=== PATIENT | male | born 1960 | race Caucasian/White ===

== ENCOUNTER 2017-02-12 07:27 | Emergency (ER) | payer MEDICARE, MEDICAID ==
[~2017-02-12] VITALS: Ht 177.8 cm; Wt 90.7 kg
[~2017-02-12 07:27] MED LIST: ALPR1T PO; FLT05NA16 NSEACH; PRD20T PO; SEROQUEL; [UNRECOGNIZED DRUG - OTHER]
[2017-02-12 07:42] LABS: BASOPHILS # (AUTO) 0.1 10^3/uL (0.0-0.1); BASOPHILS % (AUTO) 1 % (0-10); EOSINOPHILS % (AUTO) 0 % (0-10); LYMPHOCYTES # (AUTO) 1.1 X 10^3 (1.0-4.0); LYMPHOCYTES % (AUTO) 8 % (12-44); MEAN CORPUSCULAR HEMOGLOBIN 35 PG (25-34); MEAN CORPUSCULAR HGB CONC 34 G/DL (32-36); MEAN CORPUSCULAR VOLUME 105 FL (80-99); MEAN PLATELET VOLUME 12.6 FL (7.4-10.4); MONOCYTES # (AUTO) 1.1 X 10^3 (0.0-1.0); MONOCYTES % (AUTO) 8 % (0-12); NEUTROPHILS # (AUTO) 12.4 X 10^3 (1.8-7.8); NEUTROPHILS % (AUTO) 84 % (42-75); PLATELET COUNT 183 10^3/uL (130-400); RED BLOOD COUNT 2.41 10^6/uL (4.35-5.85); RED CELL DISTRIBUTION WIDTH 13.7 % (10.0-14.5); WHITE BLOOD COUNT 14.7 10^3/uL (4.3-11.0)
--- NOTE | 2017-02-12 07:43 | ED Abdominal Pain ---
General Stated Complaint: SYNCOPE Source of Information: Patient, EMS Exam Limitations: Intoxication History of Present Illness Time Seen By Provider: 07:38 Initial Comments This 56-year old white male presents with a history drinking a pint or more of vodka daily. Three days ago he vomited blood with subsequent black and tarry stools. This morning he vomited a large amount of bright red blood and having a secondary syncopal episode, self-limited in nature. He takes an aspirin a day. He has no definite cardiovascular history and has untreated hypertension. There is no history of bleeding disorder. There was no associated chest pain, palpatations, or shortness of breath. Allergies and Home Medications Allergies Coded Allergies: Penicillins (Verified Allergy, Unknown, 02/12/17) Home Medications Alprazolam 1 Mg Tablet, 1 TAB PO BID PRN, #5 Ref 0 Prescribed by: ANGUS BRITO on 01/30/131406 Fluticasone Propionate 16 Gm Howard, 2 SPRAYS NSEACH DAILY for 30 Days, Ref 0 Prescribed by: ANGUS BRITO on 01/30/131406 Prednisone 20 Mg Tab, 20 MG PO DAILY for 7 Days Prescribed by: ANGUS BRITO on 01/30/131406 [Inbega] , (Reported) [Seroquel] , (Reported) Review of Systems Constitutional: No chills, dizziness, weakness EENTM: No Blurred Vision, No Double Vision, No Mouth Pain Respiratory: Denies Cough, Denies Shortness of Air Cardiovascular: Denies Edema, Denies Irregular Heart Rate, Lightheadedness, Denies Palpitations, Syncope Gastrointestinal: Denies Abdomen Distended, Abdominal Pain (the patient has mild diffuse abdominal tenderness. No rebound is present. No masses were noted.), Nausea, Vomiting, Other (of bright red blood.) Genitourinary: No Symptoms Reported Musculoskeletal: No back pain Skin: change in color (patient appears pale in the emergency department) Psychiatric/Neurological: No Symptoms Reported Endocrine: No Symptoms Reported Hematologic/Lymphatic: No Symptoms Reported Past Dyppsqc-Qsjuwc-Chyzrs Hx Patient Social History Alcohol Use: Regular Use Recreational Drug Use: No Smoking Status: Current Everyday Smoker Type Used: Cigarettes Surgeries HX Surgeries: No Respiratory Hx Respiratory Disorders: No Cardiovascular Hx Cardiac Disorders: No Neurological Hx Neurological Disorders: No Genitourinary Hx Genitourinary Disorders: No Gastrointestinal Hx Gastrointestinal Disorders: No Musculoskeletal Hx Musculoskeletal Disorders: Yes Musculoskeletal Disorders: Chronic Back Pain Endocrine Hx Endocrine Disorders: No Cancer Hx Cancer: No Psychosocial Hx Psychiatric Problems: Yes Behavioral Health Disorders: Anxiety, Depression Reviewed Nursing Assessment Reviewed/Agree w Nursing PMH: Yes Family Medical History Significant Family History: No Pertinent Family Hx Physical Exam Vital Signs VS - Last 72 Hours, by Label 02/12/17 07:30 Temp 96.9 Pulse 115 Resp 18 B/P (MAP) 178/106 Pulse Ox 99 O2 Delivery Room Air Capillary Refill : General Appearance: mild distress HEENT: No scleral icterus (L), other (the patient appears pale he has old blood to the face that he vomited prior to presentation to the emergency department.) Neck: non-tender, full range of motion, supple Respiratory: lungs clear, normal breath sounds, no respiratory distress Cardiovascular: regular rate, rhythm, no gallop, no murmur Gastrointestinal: normal bowel sounds, non tender, soft Extremities: normal range of motion, non-tender, normal inspection, no pedal edema Back: normal inspection, no CVA tenderness Male: normal genitalia, other (guiac positive stool) Neurologic/Psychiatric: no motor/sensory deficits, normal mood/affect Skin: No jaundice, pallor Progress/Results/Core Measures Results/Orders Lab Results Laboratory Tests Test 02/12/17 07:30 Range/Units White Blood Count 14.7 H 4.3-11.0 10^3/uL Red Blood Count 2.41 L 4.35-5.85 10^6/uL Hemoglobin 8.5 L 13.3-17.7 G/DL Hematocrit 25 L 40-54 % Mean Corpuscular Volume 105 H 80-99 FL Mean Corpuscular Hemoglobin 35 H 25-34 PG Mean Corpuscular Hemoglobin Concent 34 32-36 G/DL Red Cell Distribution Width 13.7 10.0-14.5 % Platelet Count 183 130-400 10^3/uL Mean Platelet Volume 12.6 H 7.4-10.4 FL Neutrophils (%) (Auto) 84 H 42-75 % Lymphocytes (%) (Auto) 8 L 12-44 % Monocytes (%) (Auto) 8 0-12 % Eosinophils (%) (Auto) 0 0-10 % Basophils (%) (Auto) 1 0-10 % Neutrophils # (Auto) 12.4 H 1.8-7.8 X 10^3 Lymphocytes # (Auto) 1.1 1.0-4.0 X 10^3 Monocytes # (Auto) 1.1 H 0.0-1.0 X 10^3 Eosinophils # (Auto) 0.0 0.0-0.3 10^3/uL Basophils # (Auto) 0.1 0.0-0.1 10^3/uL Neutrophils % (Manual) 78 % Lymphocytes % (Manual) 13 % Monocytes % (Manual) 5 % Eosinophils % (Manual) 0 % Basophils % (Manual) 0 % Band Neutrophils 4 % Macrocytosis SLIGHT Prothrombin Time 16.7 H 12.2-14.7 SEC INR Comment 1.4 0.8-1.4 Sodium Level 142 135-145 MMOL/L Potassium Level 4.7 3.6-5.0 MMOL/L Chloride Level 108 H 98-107 MMOL/L Carbon Dioxide Level 21 21-32 MMOL/L Anion Gap 13 5-14 MMOL/L Blood Urea Nitrogen 40 H 7-18 MG/DL Creatinine 1.24 0.60-1.30 MG/DL Estimat Glomerular Filtration Rate > 60 BUN/Creatinine Ratio 32 Glucose Level 311 H 70-105 MG/DL Calcium Level 8.1 L 8.5-10.1 MG/DL Total Bilirubin 2.0 H 0.1-1.0 MG/DL Aspartate Amino Transf (AST/SGOT) 60 H 5-34 U/L Alanine Aminotransferase (ALT/SGPT) 18 0-55 U/L Alkaline Phosphatase 82 40-136 U/L Troponin I < 0.30 <0.30 NG/ML Total Protein 6.1 L 6.4-8.2 G/DL Albumin 3.1 L 3.2-4.5 G/DL Lipase 59 8-78 U/L Serum Alcohol 75 H <10 MG/DL My Orders Orders - JULIETTE BROWN MD Cbc With Automated Diff (02/12/17 07:33) Protime With Inr (02/12/17 07:33) Comprehensive Metabolic Panel (02/12/17 07:33) Alcohol (02/12/17 07:33) Drug Screen Stat (Urine) (02/12/17 07:33) Lipase (02/12/17 07:33) Type And Screen (02/12/17 07:33) Ua Culture If Indicated (02/12/17 07:33) Ns Iv 1000 Ml (Sodium Chloride 0.9%) (02/12/17 07:45) Ondansetron Injection (Zofran Injectio (02/12/17 07:45) Thiamine Injection (Vitamin B-1 Injectio (02/12/17 09:00) Manual Differential (02/12/17 07:30) Lorazepam Injection (Ativan Injection) (02/12/17 08:00) Promethazine Injection (Phenergan Injec (02/12/17 08:15) Diphenhydramine Injection (Benadryl Inje (02/12/17 08:15) Occult Blood Stool (02/12/17 08:08) Diphenhydramine Injection (Benadryl Inje (02/12/17 08:30) Fresh Frozen Plasma (02/12/17 08:25) Abo Rh Type (02/12/17 07:30) Red Cells Leukocytes Reduced (02/12/17 08:29) Red Cells Leukocytes Reduced (02/12/17 07:30) Troponin I (02/12/17 08:42) Ns (Ivpb) (Sodium C... W/Octreotide Inj (02/12/17 09:00) Pantoprazole Injection (Protonix Injecti (02/12/17 09:30) Medications Given in ED Current Medications Medications Dose Ordered Sig/Argelia Route Start Time Stop Time Status Last Admin Dose Admin Diphenhydramine HCl 25 mg ONCE ONCE IVP 02/12/17 08:30 02/12/17 08:31 DC 02/12/17 08:25 25 MG Lorazepam 2 mg ONCE ONCE IVP 02/12/17 08:00 02/12/17 08:01 DC 02/12/17 07:56 2 MG Ondansetron HCl 4 mg ONCE ONCE IVP 02/12/17 07:45 02/12/17 07:46 DC 02/12/17 07:50 4 MG Promethazine HCl 25 mg ONCE ONCE IVP 02/12/17 08:15 02/12/17 08:16 DC 02/12/17 08:22 25 MG Vital Signs/I&O Vital Sign - Last 12Hours 02/12/17 07:30 Temp 96.9 Pulse 115 Resp 18 B/P (MAP) 178/106 Pulse Ox 99 O2 Delivery Room Air Critical Care Note Critical Care Start Time: 08:30 Stop Time: 09:45 Total Time (minutes) Drs. Conde, Lucero, and Hal at [facility] accepted the patient in transfer by air per their request due to pt's unstable condition. IV crystalloid bolus, 2 units of packed cells, 5 units of fresh frozen plasma, octreotide drip, and Protonix bolus were initiated in the ED. [email or web address] accepted the patient for air transport. Departure Impression Impression: Primary Impression: GI bleed Qualified Codes: K92.0 - Hematemesis Disposition: XFER SHT-TRM HOSP Condition: Improved Transfer Transfer Time: 09:24 Transfer Facility: Dr. Conde accepted patient for emergent EGD. Dr. Barker accepted as hospitalist and requested Octreatide gtt. Dr. Hong in ED requested pt fly and protonix 80 mg IV. Method of Transfer: Air Departure-Patient Inst. Referrals: NO,LOCAL PHYSICIAN (PCP/Family) Primary Care Physician JULIETTE BROWN MD Feb 12, 2017 07:43
[2017-02-12] MEDS ORDERED: ONDANSETRON 4 MG/2 ML (SDV) Z0FRAN IVP ONE (07:45)
[2017-02-12] MEDS ORDERED: NS IV 1000 ML 1,000 ML IV SCH (07:45)
[2017-02-12 07:51] LABS: INR 1.4 (0.8-1.4); PROTHROMBIN TIME PATIENT 16.7 SEC (12.2-14.7)
[2017-02-12] MEDS ORDERED: LORazepam INJ 2 MG/ML (ATIVAN) VIAL IVP ONE (08:00)
[2017-02-12 08:03] LABS: ALANINE AMINOTRANSFERASE 18 U/L (0-55); ALBUMIN 3.1 G/DL (3.2-4.5); ALCOHOL 75 MG/DL (<10); ANION GAP 13 MMOL/L (5-14); ASPARTATE AMINO TRANSFERASE 60 U/L (5-34); BLOOD UREA NITROGEN 40 MG/DL (7-18); BUN/CREATININE RATIO 32; CALCIUM 8.1 MG/DL (8.5-10.1); CARBON DIOXIDE 21 MMOL/L (21-32); CHLORIDE 108 MMOL/L (98-107); CREATININE SERUM 1.24 MG/DL (0.60-1.30); GFR ESTIMATED > 60; GLUCOSE 311 MG/DL (70-105); LIPASE 59 U/L (8-78); POTASSIUM 4.7 MMOL/L (3.6-5.0); SODIUM 142 MMOL/L (135-145); TOTAL PROTEIN 6.1 G/DL (6.4-8.2)
[2017-02-12] MEDS ORDERED: diphenhydrAMINE 50 MG/ML INJ (BENADRYL) IM ONE (08:15)
[2017-02-12] MEDS ORDERED: PROMETHAZINE INJ 25 MG/ML (PHENERGAN) AMP IVP ONE (08:15)
[2017-02-12] MEDS ORDERED: diphenhydrAMINE 50 MG/ML INJ (BENADRYL) IVP ONE (08:30)
[2017-02-12 08:32] LABS: BAND NEUTROPHILS 4 %; BASOPHILS % (MANUAL) 0 %; EOSINOPHILS % (MANUAL) 0 %; LYMPHOCYTES % (MANUAL) 13 %; NEUTROPHILS % (MANUAL) 78 %
[2017-02-12] MEDS ORDERED: THIAMINE INJECTION 100 MG, FOLIC ACID INJECTION 1 MG, VITAMIN MULTI INJECTION 10 ML, MA... IV SCH ×5 (09:00)
[2017-02-12] MEDS ORDERED: OCTREOTIDE INJECTION 500 MCG in NS (IVPB) 99 ML IV SCH (09:00)
[2017-02-12] MEDS ORDERED: PANTOPRAZOLE 40 MG/10 ML (PROTONIX) VIAL IV ONE (09:30)
[2017-02-12 09:35] VITALS: BP 186/79
[2017-02-12 09:37] VITALS: BP 186/79
[2017-02-12 10:18] VITALS: BP 160/91
[2017-02-12] MEDS ORDERED: NS IV 1000 ML 1,000 ML IV ONE ×2 (10:21)
[2017-02-13] MEDS ORDERED: NS IV 1000 ML 1,000 ML ONE (07:38)
--- OUTSIDE RECORDS SUMMARY | 2017-03-08 09:12 | XMS REPORT ---
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 [address]-95 1 MG Orally 4 times a day PRN anxiety Sep 03, 2014 Tablet 0.5-1 tab Results No Known Results Summary Purpose [employer] Submission
--- OUTSIDE RECORDS SUMMARY | 2017-03-08 09:12 | XMS REPORT | Continuity of Care Document ---
Author Author [facility] Address Unknown Phone Unavailable Allergies Active Description Code Type Severity Reaction Onset Reported/Identified Relationship to Patient Clinical Status Yes metoprolol Drug Allergy N/A N/A 03/24/2010 Yes metoprolol Drug Allergy 03/24/2010 Yes Invega 9 mg tablet extended release 24hr Drug Allergy N/A N/A 02/15/2013 Yes Invega 9 mg tablet extended release 24hr Drug Allergy 02/15/2013 Yes Penicillins Drug Allergy N/A N/A 02/15/2013 Yes Penicillins Drug Allergy 02/15/2013 Yes Latuda 20 mg tablet Drug Allergy N/A N/A 02/20/2013 Yes Latuda 20 mg tablet Drug Allergy 02/20/2013 Medications Problems Date Dx Coded Attending Type Code Diagnosis Diagnosed By 12/04/2009 ROSALINDA GUERRERO MD 681.11 PARONYCHIA 12/04/2009 ROSALINDA GUERRERO MD 727.3 BURSITIS 12/04/2009 681.11 PARONYCHIA 12/04/2009 727.3 BURSITIS 12/04/2009 681.11 PARONYCHIA 12/04/2009 727.3 BURSITIS 12/04/2009 681.11 PARONYCHIA 12/04/2009 727.3 BURSITIS 12/04/2009 681.11 PARONYCHIA 12/04/2009 727.3 BURSITIS 12/04/2009 FRANK MUÑIZ APRN 681.11 PARONYCHIA 12/04/2009 FRANK MUÑIZ APRN 727.3 BURSITIS 12/04/2009 ROSALINDA GUERRERO MD 681.11 PARONYCHIA 12/04/2009 ROSALINDA GUERRERO MD 727.3 BURSITIS 12/04/2009 FRANK MUÑIZ APRN 681.11 PARONYCHIA 12/04/2009 FRANK MUÑIZ APRN 727.3 BURSITIS 12/04/2009 FRANK MUÑIZ APRN 681.11 PARONYCHIA 12/04/2009 FRANK MUÑIZ APRN 727.3 BURSITIS 12/04/2009 FRANK MUÑIZ APRN 681.11 PARONYCHIA 12/04/2009 FRANK MUÑIZ APRN 727.3 BURSITIS 12/04/2009 ROSALINDA GUERRERO MD 681.11 PARONYCHIA 12/04/2009 YOLANDA AGUILAR, ROSALINDA 727.3 BURSITIS 12/04/2009 FRANK MUÑIZ APRN 681.11 PARONYCHIA 12/04/2009 FRANK MUÑIZ APRN 727.3 BURSITIS 12/04/2009 ROSALINDA GUERRERO MD 681.11 PARONYCHIA 12/04/2009 YOLANDA AGUILAR, ROSALINDA 727.3 BURSITIS 12/04/2009 MICHAEL EARLY CHILDHOOD WORKER, EVELIN M 681.11 PARONYCHIA 12/04/2009 MICHAEL EARLY CHILDHOOD WORKER, EVELIN M 727.3 BURSITIS 12/04/2009 MICHAEL EARLY CHILDHOOD WORKER, EVELIN M 681.11 PARONYCHIA 12/04/2009 MICHAEL EARLY CHILDHOOD WORKER, EVELIN M 727.3 BURSITIS 01/20/2010 ROSALINDA GUERRERO MD 298.9 UNSPECIFIED PSYCHOSIS 01/20/2010 ROSALINDA GUERRERO MD 311 DEPRESSIVE DISORDER, NOT ELSEWHERE CLASSIFIED 01/20/2010 298.9 UNSPECIFIED PSYCHOSIS 01/20/2010 311 DEPRESSIVE DISORDER, NOT ELSEWHERE CLASSIFIED 01/20/2010 298.9 UNSPECIFIED PSYCHOSIS 01/20/2010 311 DEPRESSIVE DISORDER, NOT ELSEWHERE CLASSIFIED 01/20/2010 298.9 UNSPECIFIED PSYCHOSIS 01/20/2010 311 DEPRESSIVE DISORDER, NOT ELSEWHERE CLASSIFIED 01/20/2010 298.9 UNSPECIFIED PSYCHOSIS 01/20/2010 311 DEPRESSIVE DISORDER, NOT ELSEWHERE CLASSIFIED 01/20/2010 FRANK MUÑIZ APRN 298.9 UNSPECIFIED PSYCHOSIS 01/20/2010 FRANK MUÑIZ APRN 311 DEPRESSIVE DISORDER, NOT ELSEWHERE CLASSIFIED 01/20/2010 ROSALINDA GUERRERO MD 298.9 UNSPECIFIED PSYCHOSIS 01/20/2010 ROSALINDA GUERRERO MD 311 DEPRESSIVE DISORDER, NOT ELSEWHERE CLASSIFIED 01/20/2010 FRANK MUÑIZ APRN 298.9 UNSPECIFIED PSYCHOSIS 01/20/2010 FRANK MUÑIZ APRN 311 DEPRESSIVE DISORDER, NOT ELSEWHERE CLASSIFIED 01/20/2010 FRANK MUÑIZ APRN 298.9 UNSPECIFIED PSYCHOSIS 01/20/2010 FRANK MUÑIZ APRN D 311 DEPRESSIVE DISORDER, NOT ELSEWHERE CLASSIFIED 01/20/2010 FRANK MUÑIZ APRN 298.9 UNSPECIFIED PSYCHOSIS 01/20/2010 FRANK MUÑIZ APRN 311 DEPRESSIVE DISORDER, NOT ELSEWHERE CLASSIFIED 01/20/2010 ROSALINDA GUERRERO MD 298.9 UNSPECIFIED PSYCHOSIS 01/20/2010 ROSALINDA GUERRERO MD 311 DEPRESSIVE DISORDER, NOT ELSEWHERE CLASSIFIED 01/20/2010 FRANK MUÑIZ APRN 298.9 UNSPECIFIED PSYCHOSIS 01/20/2010 FRANK MUÑIZ APRN 311 DEPRESSIVE DISORDER, NOT ELSEWHERE CLASSIFIED 01/20/2010 ROSALINDA GUERRERO MD 298.9 UNSPECIFIED PSYCHOSIS 01/20/2010 ROSALINDA GUERRERO MD 311 DEPRESSIVE DISORDER, NOT ELSEWHERE CLASSIFIED 01/20/2010 MICHAEL EARLY CHILDHOOD WORKER, EEVLIN M 298.9 UNSPECIFIED PSYCHOSIS 01/20/2010 MICHAEL EARLY CHILDHOOD WORKER, EVELIN M 311 DEPRESSIVE DISORDER, NOT ELSEWHERE CLASSIFIED 01/20/2010 MICHAEL EARLY CHILDHOOD WORKER, EVELIN M 298.9 UNSPECIFIED PSYCHOSIS 01/20/2010 MICHAEL EARLY CHILDHOOD WORKER, EVELIN M 311 DEPRESSIVE DISORDER, NOT ELSEWHERE CLASSIFIED 02/17/2010 ROSALINDA GUERRERO MD 719.41 PAIN IN JOINT, SHOULDER REGION 02/17/2010 ROSALINDA GUERRERO MD V58.69 MEDICATION HIGH RISK 02/17/2010 719.41 PAIN IN JOINT, SHOULDER REGION 02/17/2010 V58.69 MEDICATION HIGH RISK 02/17/2010 719.41 PAIN IN JOINT, SHOULDER REGION 02/17/2010 V58.69 MEDICATION HIGH RISK 02/17/2010 719.41 PAIN IN JOINT, SHOULDER REGION 02/17/2010 V58.69 MEDICATION HIGH RISK 02/17/2010 719.41 PAIN IN JOINT, SHOULDER REGION 02/17/2010 V58.69 MEDICATION HIGH RISK 02/17/2010 FRANK MUÑIZ APRN 719.41 PAIN IN JOINT, SHOULDER REGION 02/17/2010 FRANK MUÑIZ APRN V58.69 MEDICATION HIGH RISK 02/17/2010 ROSALINDA GUERRERO MD 719.41 PAIN IN JOINT, SHOULDER REGION 02/17/2010 ROSALINDA GUERRERO MD V58.69 MEDICATION HIGH RISK 02/17/2010 FRANK MUÑIZ APRN 719.41 PAIN IN JOINT, SHOULDER REGION 02/17/2010 FRANK MUÑIZ APRN V58.69 MEDICATION HIGH RISK 02/17/2010 FRANK MUÑIZ APRN 719.41 PAIN IN JOINT, SHOULDER REGION 02/17/2010 FRANK MUÑIZ APRN V58.69 MEDICATION HIGH RISK 02/17/2010 FRANK MUÑIZ APRN 719.41 PAIN IN JOINT, SHOULDER REGION 02/17/2010 FRANK MUÑIZ APRN V58.69 MEDICATION HIGH RISK 02/17/2010 ROSALINDA GUERRERO MD 719.41 PAIN IN JOINT, SHOULDER REGION 02/17/2010 ROSALINDA GUERRERO MD V58.69 MEDICATION HIGH RISK 02/17/2010 FRANK MUÑIZ APRN 719.41 PAIN IN JOINT, SHOULDER REGION 02/17/2010 FRANK MUÑIZ APRN V58.69 MEDICATION HIGH RISK 02/17/2010 ROSALINDA GUERRERO MD 719.41 PAIN IN JOINT, SHOULDER REGION 02/17/2010 ROSALINDA GUERRERO MD V58.69 MEDICATION HIGH RISK 02/17/2010 EVELIN CABALLERO 719.41 PAIN IN JOINT, SHOULDER REGION 02/17/2010 EVELIN CABALLERO V58.69 MEDICATION HIGH RISK 02/17/2010 EVELIN CABALLERO 719.41 PAIN IN JOINT, SHOULDER REGION 02/17/2010 EVELIN CABALLERO V58.69 MEDICATION HIGH RISK 03/24/2010 ROSALINDA GUERRERO MD 307.42 PERSISTENT DISORDER OF INITIATING OR MAINTAINING SLEEP 03/24/2010 ROSALINDA GUERRERO MD 401.9 UNSPECIFIED ESSENTIAL HYPERTENSION 03/24/2010 ROSALINDA GUERRERO MD 460 ACUTE NASOPHARYNGITIS [COMMON COLD] 03/24/2010 307.42 PERSISTENT DISORDER OF INITIATING OR MAINTAINING SLEEP 03/24/2010 401.9 UNSPECIFIED ESSENTIAL HYPERTENSION 03/24/2010 460 ACUTE NASOPHARYNGITIS [COMMON COLD] 03/24/2010 307.42 PERSISTENT DISORDER OF INITIATING OR MAINTAINING SLEEP 03/24/2010 401.9 UNSPECIFIED ESSENTIAL HYPERTENSION 03/24/2010 460 ACUTE NASOPHARYNGITIS [COMMON COLD] 03/24/2010 307.42 PERSISTENT DISORDER OF INITIATING OR MAINTAINING SLEEP 03/24/2010 401.9 UNSPECIFIED ESSENTIAL HYPERTENSION 03/24/2010 460 ACUTE NASOPHARYNGITIS [COMMON COLD] 03/24/2010 307.42 PERSISTENT DISORDER OF INITIATING OR MAINTAINING SLEEP 03/24/2010 401.9 UNSPECIFIED ESSENTIAL HYPERTENSION 03/24/2010 460 ACUTE NASOPHARYNGITIS [COMMON COLD] 03/24/2010 FRANK MUÑIZ APRN 307.42 PERSISTENT DISORDER OF INITIATING OR MAINTAINING SLEEP 03/24/2010 FRANK MUÑIZ APRN 401.9 UNSPECIFIED ESSENTIAL HYPERTENSION 03/24/2010 FRANK MUÑIZ APRN 460 ACUTE NASOPHARYNGITIS [COMMON COLD] 03/24/2010 ROSALINDA GUERRERO MD 307.42 PERSISTENT DISORDER OF INITIATING OR MAINTAINING SLEEP 03/24/2010 ROSALINDA GUERRERO MD 401.9 UNSPECIFIED ESSENTIAL HYPERTENSION 03/24/2010 ROSALINDA GUERRERO MD 460 ACUTE NASOPHARYNGITIS [COMMON COLD] 03/24/2010 FRANK MUÑIZ APRN 307.42 PERSISTENT DISORDER OF INITIATING OR MAINTAINING SLEEP 03/24/2010 FRANK MUÑIZ APRN 401.9 UNSPECIFIED ESSENTIAL HYPERTENSION 03/24/2010 FRANK MUÑIZ APRN 460 ACUTE NASOPHARYNGITIS [COMMON COLD] 03/24/2010 FRANK MUÑIZ APRN 307.42 PERSISTENT DISORDER OF INITIATING OR MAINTAINING SLEEP 03/24/2010 FRANK MUÑIZ APRN 401.9 UNSPECIFIED ESSENTIAL HYPERTENSION 03/24/2010 FRANK MUÑIZ APRN 460 ACUTE NASOPHARYNGITIS [COMMON COLD] 03/24/2010 FRANK MUÑIZ APRN 307.42 PERSISTENT DISORDER OF INITIATING OR MAINTAINING SLEEP 03/24/2010 FRANK MUÑIZ APRN 401.9 UNSPECIFIED ESSENTIAL HYPERTENSION 03/24/2010 FRANK MUÑIZ APRN 460 ACUTE NASOPHARYNGITIS [COMMON COLD] 03/24/2010 ROSALINDA GUERRERO MD 307.42 PERSISTENT DISORDER OF INITIATING OR MAINTAINING SLEEP 03/24/2010 ROSALINDA GUERRERO MD 401.9 UNSPECIFIED ESSENTIAL HYPERTENSION 03/24/2010 ROSALINDA GUERRERO MD 460 ACUTE NASOPHARYNGITIS [COMMON COLD] 03/24/2010 FRANK MUÑIZ APRN 307.42 PERSISTENT DISORDER OF INITIATING OR MAINTAINING SLEEP 03/24/2010 FRANK MUÑIZ APRN 401.9 UNSPECIFIED ESSENTIAL HYPERTENSION 03/24/2010 FRANK MUÑIZ APRN 460 ACUTE NASOPHARYNGITIS [COMMON COLD] 03/24/2010 ROSALINDA GUERRERO MD 307.42 PERSISTENT DISORDER OF INITIATING OR MAINTAINING SLEEP 03/24/2010 ROSALINDA GUERRERO MD 401.9 UNSPECIFIED ESSENTIAL HYPERTENSION 03/24/2010 ROSALINDA GUERRERO MD 460 ACUTE NASOPHARYNGITIS [COMMON COLD] 03/24/2010 EVELIN CABALLERO 307.42 PERSISTENT DISORDER OF INITIATING OR MAINTAINING SLEEP 03/24/2010 EVELIN CABALLERO 401.9 UNSPECIFIED ESSENTIAL HYPERTENSION 03/24/2010 EVELIN CABALLERO 460 ACUTE NASOPHARYNGITIS [COMMON COLD] 03/24/2010 EVELIN CABALLERO 307.42 PERSISTENT DISORDER OF INITIATING OR MAINTAINING SLEEP 03/24/2010 EVELIN CABALLERO 401.9 UNSPECIFIED ESSENTIAL HYPERTENSION 03/24/2010 EVELIN CABALLERO 460 ACUTE NASOPHARYNGITIS [COMMON COLD] 08/18/2010 ROSALINDA GUERRERO MD 300.00 AN ANXIETY UNSPEC 08/18/2010 300.00 AN ANXIETY UNSPEC 08/18/2010 300.00 AN ANXIETY UNSPEC 08/18/2010 300.00 AN ANXIETY UNSPEC 08/18/2010 300.00 AN ANXIETY UNSPEC 08/18/2010 FRANK MUÑIZ APRN 300.00 AN ANXIETY UNSPEC 08/18/2010 ROSALINDA GUERRERO MD 300.00 AN ANXIETY UNSPEC 08/18/2010 FRANK MUÑIZ APRN 300.00 AN ANXIETY UNSPEC 08/18/2010 FRANK MUÑIZ APRN 300.00 AN ANXIETY UNSPEC 08/18/2010 FRANK MUÑIZ APRN 300.00 AN ANXIETY UNSPEC 08/18/2010 ROSALINDA GUERRERO MD 300.00 AN ANXIETY UNSPEC 08/18/2010 FRANK MUÑIZ APRN 300.00 AN ANXIETY UNSPEC 08/18/2010 ROSALINDA GUERRERO MD 300.00 AN ANXIETY UNSPEC 08/18/2010 MICHAEL E[employer]LY CHILDHOOD WORKER, EVELIN M 300.00 AN ANXIETY UNSPEC 08/18/2010 MICHAEL BURDICK, EVELIN M 300.00 AN ANXIETY UNSPEC 09/01/2012 ROSALINDA GUERRERO MD 607.84 IMPOTENCE OF ORGANIC ORIGIN 09/01/2012 607.84 IMPOTENCE OF ORGANIC ORIGIN 09/01/2012 607.84 IMPOTENCE OF ORGANIC ORIGIN 09/01/2012 607.84 IMPOTENCE OF ORGANIC ORIGIN 09/01/2012 607.84 IMPOTENCE OF ORGANIC ORIGIN 09/01/2012 FRANK MUÑIZ APRN 607.84 IMPOTENCE OF ORGANIC ORIGIN 09/01/2012 ROSALINDA GUERRERO MD 607.84 IMPOTENCE OF ORGANIC ORIGIN 09/01/2012 FRANK MUÑIZ APRN 607.84 IMPOTENCE OF ORGANIC ORIGIN 09/01/2012 FRANK MUÑIZ APRN 607.84 IMPOTENCE OF ORGANIC ORIGIN 09/01/2012 FRANK MUÑIZ APRN 607.84 IMPOTENCE OF ORGANIC ORIGIN 09/01/2012 ROSALINDA GUERRERO MD 607.84 IMPOTENCE OF ORGANIC ORIGIN 09/01/2012 FRANK MUÑIZ APRN 607.84 IMPOTENCE OF ORGANIC ORIGIN 09/01/2012 ROSALINDA GUERRERO MD 607.84 IMPOTENCE OF ORGANIC ORIGIN 09/01/2012 MICHAEL BURDICK, EVELIN Trevino 607.84 IMPOTENCE OF ORGANIC ORIGIN 09/01/2012 MICHAEL BURDICK, EVELIN Trevino 607.84 IMPOTENCE OF ORGANIC ORIGIN 02/15/2013 ROSALINDA GUERRERO MD 461.9 ACUTE SINUSITIS UNSPECIFIED 02/15/2013 461.9 ACUTE SINUSITIS UNSPECIFIED 02/15/2013 461.9 ACUTE SINUSITIS UNSPECIFIED 02/15/2013 461.9 ACUTE SINUSITIS UNSPECIFIED 02/15/2013 461.9 ACUTE SINUSITIS UNSPECIFIED 02/15/2013 FRANK MUÑIZ APRN 461.9 ACUTE SINUSITIS UNSPECIFIED 02/15/2013 ROSALINDA GUERRERO MD 461.9 ACUTE SINUSITIS UNSPECIFIED 02/15/2013 FRANK MUÑIZ APRN 461.9 ACUTE SINUSITIS UNSPECIFIED 02/15/2013 FRANK MUÑIZ APRN 461.9 ACUTE SINUSITIS UNSPECIFIED 02/15/2013 FRANK MUÑIZ APRN 461.9 ACUTE SINUSITIS UNSPECIFIED 02/15/2013 ROSALINDA GUERRERO MD 461.9 ACUTE SINUSITIS UNSPECIFIED 02/15/2013 FRANK MUÑIZ APRN 461.9 ACUTE SINUSITIS UNSPECIFIED 02/15/2013 ROSALINDA GUERRERO MD 461.9 ACUTE SINUSITIS UNSPECIFIED 02/15/2013 EVELIN CABALLERO 461.9 ACUTE SINUSITIS UNSPECIFIED 02/15/2013 EVELIN CABALLERO 461.9 ACUTE SINUSITIS UNSPECIFIED 02/19/2014 ROSALINDA GUERRERO MD 729.2 NEURALGIA NEURITIS AND RADICULITIS UNSPECIFIED 02/19/2014 FRANK MUÑIZ APRN 729.2 NEURALGIA NEURITIS AND RADICULITIS UNSPECIFIED 02/19/2014 ROSALINDA GUERRERO MD 729.2 NEURALGIA NEURITIS AND RADICULITIS UNSPECIFIED 02/19/2014 EVELIN CABALLERO 729.2 NEURALGIA NEURITIS AND RADICULITIS UNSPECIFIED 02/19/2014 EVELIN CABALLERO 729.2 NEURALGIA NEURITIS AND RADICULITIS UNSPECIFIED 09/18/2014 EVELIN CABALLERO 296.80 MO BIPOLAR NOS 09/18/2014 EVELIN CABALLERO 317 MENTAL RETARDATION-MILD 09/18/2014 EVELIN CABALLERO 296.80 MO BIPOLAR NOS 09/18/2014 EVELIN CABALLERO 317 MENTAL RETARDATION-MILD Procedures Code Description [place] [address] URINE DRUG SCREEN (IN-HOUSE) 02/15/2013 47102 PSYCH DIAG EVAL W/MED SRVCS 02/19/2013 86710 A1C (IN-HOUSE) 71291 CBC 06/21/2013 06318 CMP 06/21/2013 68510 LIPID PANEL 06/21 [id number] GFR CALC (RESULT ONLY) 06/21/2013 49745 LITHIUM 2012 31771 TSH 06/21/2013 91186 CLONAZEPAM (KLONOPIN) 02/08/2014 75409 ROUTINE VENIPUNCTURE 02/08/2014 50114 CBC 02/08/2014 [id number] GFR CALC (RESULT ONLY) 02/08/2014 87727 CMP 02/08/2014 23671 LITHIUM 2013 80081 TSH 02/08/2014 15026 [facility] 09/19/2014 32198 LITHIUM 2013 83504 TSH 09/19/2014 86198 PSYCH PHARM MGMT 09/19/2014 09836 CMP 09/20/2014 33612 LITHIUM 2013 71520 TSH 09/20/2014 41010 PSYCH PHARM MGMT 09/20/2014 52604 ROUTINE VENIPUNCTURE 10/08/20145897724 GFR CALC (RESULT ONLY) 10/08/2014 27227 [facility] 10/08/2014 39791 LITHIUM 2013 65936 [facility] 10/08/2014 Results Encounters ACCT No. Visit Date/Time Discharge Status Pt. Type Provider Facility Loc./Unit Complaint [id number] 10/08/2014 11:57:00 10/08/2014 23: 59:59 CLS Outpatient EVELIN CABALLERO [id number] 09/18/2014 13:56:00 09/18/2014 23: 59:59 CLS Outpatient EVELIN CABALLERO [id number] 09/03/2014 14:15:00 09/03/2014 23: 59:59 CLS Outpatient ROSALINDA GUERRERO MD [id number] 02/19/2014 09:40:00 02/19/2014 23: 59:59 CLS Outpatient ROSALINDA GUERRERO MD [id number] 02/08/2014 11:27:00 02/08/2014 23: 59:59 CLS Outpatient FRANK MUÑIZ APRN [id number] 02/05/2014 14:59:00 02/05/2014 23: 59:59 CLS Outpatient FRANK MUÑIZ APRN [id number] 11/27/2013 15:14:00 11/27/2013 23: 59:59 CLS Outpatient FRANK MUÑIZ APRN [id number] 08/27/2013 15:57:00 08/27/2013 23: 59:59 CLS Outpatient ROSALINDA GUERRERO MD [id number] 08/14/2013 12:57:00 08/14/2013 23: 59:59 CLS Outpatient FRANK MUÑIZ APRN [id number] 08/14/2013 12:57:00 08/14/2013 23: 59:59 CLS Outpatient FRANK MUÑIZ APRN [id number] 02/15/2013 12:56:00 02/15/2013 23: 59:59 CLS Outpatient ROSALINDA GUERRERO MD [id number] 06/21/2013 09:14:00 Document Registration [id number] 05/03/2013 12:16:00 Document Registration [id number] 05/03/2013 12:16:00 Document Registration [id number] 04/17/2013 12:32:00 Document Registration
== END 2017-02-12 10:00 | disposition short-term general hospital (02) ==
LOC: EDUNIT# 07:27 → ER 07:28
DX: K92.2 Gastrointestinal hemorrhage, unspecified (principal); K92.1 Melena; R55 Syncope and collapse; I10 Essential (primary) hypertension; F10.20 Alcohol dependence, uncomplicated; F17.210 Nicotine dependence, cigarettes, uncomplicated; Z79.82 Long term (current) use of aspirin; Z79.899 Other long term (current) drug therapy; Y90.3 Blood alcohol level of 60-79 mg/100 ml
CPT/HCPCS: 36415; 80053; 80320; 83690; 84484; 85007; 85027; 85610; 86850; 86900; 86901; 86920; 96361; 96365; 96366; 96375

== ENCOUNTER 2017-03-25 05:07 | Emergency (ER) | payer MEDICARE, MEDICAID ==
[~2017-03-25] VITALS: Ht 177.8 cm; Wt 90.7 kg
[2017-03-25] MEDS ORDERED: FAMOTIDINE 20MG/2ML IV (PEPCID) IVP ONE (05:30)
[2017-03-25] MEDS ORDERED: PANTOPRAZOLE 40 MG/10 ML (PROTONIX) VIAL IV ONE (05:30)
[2017-03-25 05:33] LABS: BASOPHILS % (AUTO) 0 % (0-10); EOSINOPHILS % (AUTO) 0 % (0-10); LYMPHOCYTES # (AUTO) 1.2 X 10^3 (1.0-4.0); LYMPHOCYTES % (AUTO) 12 % (12-44); MEAN CORPUSCULAR HEMOGLOBIN 30 PG (25-34); MEAN CORPUSCULAR HGB CONC 32 G/DL (32-36); MEAN CORPUSCULAR VOLUME 96 FL (80-99); MEAN PLATELET VOLUME 11.3 FL (7.4-10.4); MONOCYTES % (AUTO) 10 % (0-12); NEUTROPHILS # (AUTO) 7.7 X 10^3 (1.8-7.8); NEUTROPHILS % (AUTO) 77 % (42-75); PLATELET COUNT 123 10^3/uL (130-400); RED BLOOD COUNT 3.02 10^6/uL (4.35-5.85); RED CELL DISTRIBUTION WIDTH 13.7 % (10.0-14.5); WHITE BLOOD COUNT 9.9 10^3/uL (4.3-11.0)
[2017-03-25 05:54] LABS: INR 1.5 (0.8-1.4); PROTHROMBIN TIME PATIENT 17.6 SEC (12.2-14.7)
--- NOTE | 2017-03-25 05:59 | ED GI ---
General Chief Complaint: Abdominal/GI Problems Stated Complaint: POSS GI BLEED Nursing Triage Note: patient reports hematemesis and black tarry stools Sepsis Screen: No Definite Risk Source of Information: Patient, Old Records Exam Limitations: No Limitations (GRETA GEORGES MD) History of Present Illness Time Seen By Provider: 05:08 Initial Comments This 56-year-old gentleman presents to the emergency room via EMS from home where he reportedly has been having dark tarry stools since last night and has been vomiting blood since yesterday morning. Patient is a daily heavy drinker. He reports drinking vodka up to 1 pint daily. About a month ago he was seen in this emergency room for acute GI bleed and transferred emergently to [facility]. He reports having esophageal varices banded. He also complains of left upper quadrant pain. Patient is relatively poor historian. (GRETA GEORGES MD) Allergies and Home Medications Allergies Coded Allergies: Penicillins (Verified Allergy, Unknown, 02/12/17) Home Medications No Active Prescriptions or Reported Meds Review of Systems Constitutional: no symptoms reported EENTM: No Symptoms Reported Respiratory: No Symptoms Reported Cardiovascular: No Symptoms Reported Gastrointestinal: See HPI Genitourinary: No Symptoms Reported Musculoskeletal: no symptoms reported Skin: no symptoms reported Psychiatric/Neurological: See HPI Endocrine: No Symptoms Reported Hematologic/Lymphatic: See HPI (GRETA GEORGES MD) Past Yyfuwux-Nwberx-Oiwnnj Hx Patient Social History Alcohol Use: Regular Use Recreational Drug Use: No Type Used: Cigarettes 2nd Hand Smoke Exposure: Yes Recent Foreign Travel: No Contact w/Someone Who Travel: No Recent Infectious Disease Expo: No Recent Hopitalizations: No (GRETA GEORGES MD) Surgeries HX Surgeries: Yes Surgeries: Abdominal (banding of esophageal varices) (GRETA GEORGES MD) Respiratory Hx Respiratory Disorders: No (GRETA GEORGES MD) Cardiovascular Hx Cardiac Disorders: No (GRETA GEORGES MD) Neurological Hx Neurological Disorders: No (GRETA GEORGES MD) Genitourinary Hx Genitourinary Disorders: No (GRETA GEORGES MD) Gastrointestinal Hx Gastrointestinal Disorders: No (GRETA GEORGES MD) Musculoskeletal Hx Musculoskeletal Disorders: Yes Musculoskeletal Disorders: Chronic Back Pain (GRETA GEORGES MD) Endocrine Hx Endocrine Disorders: No (GRETA GEORGES MD) HEENT HX ENT Disorders: No (GRETA GEORGES MD) Cancer Hx Cancer: No (GRETA GEORGES MD) Psychosocial Hx Psychiatric Problems: Yes (alcoholism) Behavioral Health Disorders: Anxiety, Depression (GRETA GEOREGS MD) Family Medical History Significant Family History: No Pertinent Family Hx (GRETA GEORGES MD) Physical Exam Vital Signs VS - Last 72 Hours, by Label 03/25/17 05:08 Temp 98.2 Pulse 115 Resp 18 B/P (MAP) 162/92 Pulse Ox 100 O2 Delivery Room Air (JULIETTE BROWN MD) Vital Signs Capillary Refill : Less Than 3 Seconds (GRETA GEORGES MD) General Appearance: WD/WN, no apparent distress HEENT: PERRL/EOMI, normal ENT inspection Neck: normal inspection Respiratory: lungs clear, normal breath sounds, no respiratory distress, no accessory muscle use Cardiovascular: no edema, no murmur, tachycardia Gastrointestinal: normal bowel sounds, tenderness (left upper quadrant), other (abdominal firmness in the upper quadrants) Extremities: normal inspection, no pedal edema Neurologic/Psychiatric: 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 ) (GRETA GEORGES MD) Progress/Results/Core Measures Results/Orders Lab Results Laboratory Tests Test 03/25/17 05:20 03/25/17 05:50 Range/Units White Blood Count 9.9 4.3-11.0 10^3/uL Red Blood Count 3.02 L 4.35-5.85 10^6/uL Hemoglobin 9.1 L 13.3-17.7 G/DL Hematocrit 29 L 40-54 % Mean Corpuscular Volume 96 80-99 FL Mean Corpuscular Hemoglobin 30 25-34 PG Mean Corpuscular Hemoglobin Concent 32 32-36 G/DL Red Cell Distribution Width 13.7 10.0-14.5 % Platelet Count 123 L 130-400 10^3/uL Mean Platelet Volume 11.3 H 7.4-10.4 FL Neutrophils (%) (Auto) 77 H 42-75 % Lymphocytes (%) (Auto) 12 12-44 % Monocytes (%) (Auto) 10 0-12 % Eosinophils (%) (Auto) 0 0-10 % Basophils (%) (Auto) 0 0-10 % Neutrophils # (Auto) 7.7 1.8-7.8 X 10^3 Lymphocytes # (Auto) 1.2 1.0-4.0 X 10^3 Monocytes # (Auto) 1.0 0.0-1.0 X 10^3 Eosinophils # (Auto) 0.0 0.0-0.3 10^3/uL Basophils # (Auto) 0.0 0.0-0.1 10^3/uL Prothrombin Time 17.6 H 12.2-14.7 SEC INR Comment 1.5 H 0.8-1.4 Activated Partial Thromboplast Time 30 24-35 SEC Sodium Level 141 135-145 MMOL/L Potassium Level 3.4 L 3.6-5.0 MMOL/L Chloride Level 106 98-107 MMOL/L Carbon Dioxide Level 22 21-32 MMOL/L Anion Gap 13 5-14 MMOL/L Blood Urea Nitrogen 19 H 7-18 MG/DL Creatinine 0.80 0.60-1.30 MG/DL Estimat Glomerular Filtration Rate > 60 BUN/Creatinine Ratio 24 Glucose Level 233 H 70-105 MG/DL Calcium Level 8.1 L 8.5-10.1 MG/DL Total Bilirubin 1.3 H 0.1-1.0 MG/DL Aspartate Amino Transf (AST/SGOT) 70 H 5-34 U/L Alanine Aminotransferase (ALT/SGPT) 22 0-55 U/L Alkaline Phosphatase 121 40-136 U/L Total Protein 6.4 6.4-8.2 G/DL Albumin 3.4 3.2-4.5 G/DL Lipase 51 8-78 U/L Serum Alcohol 98 H <10 MG/DL Urine Opiates Screen NEGATIVE NEGATIVE Urine Oxycodone Screen NEGATIVE NEGATIVE Urine Methadone Screen NEGATIVE NEGATIVE Urine Propoxyphene Screen NEGATIVE NEGATIVE Urine Barbiturates Screen NEGATIVE NEGATIVE Ur Tricyclic Antidepressants Screen NEGATIVE NEGATIVE Urine Phencyclidine Screen NEGATIVE NEGATIVE Urine Amphetamines Screen NEGATIVE NEGATIVE Urine Methamphetamines Screen NEGATIVE NEGATIVE Urine Benzodiazepines Screen NEGATIVE NEGATIVE Urine Cocaine Screen NEGATIVE NEGATIVE Urine Cannabinoids Screen NEGATIVE NEGATIVE (JULIETTE BROWN MD) My Orders Orders - JULIETTE BROWN MD Ns (Ivpb) (Sodium C... W/Octreotide Inj (03/25/17 07:00) (JULIETTE BROWN MD) Medications Given in ED Current Medications Medications Dose Ordered Sig/Argelia Route Start Time Stop Time Status Last Admin Dose Admin Diphenhydramine HCl 25 mg ONCE ONCE IVP 03/25/17 06:30 03/25/17 06:31 DC 03/25/17 06:21 25 MG Famotidine 20 mg ONCE ONCE IVP 03/25/17 05:30 03/25/17 05:31 DC 03/25/17 05:28 20 MG Lorazepam 2 mg ONCE ONCE IVP 03/25/17 06:30 03/25/17 06:31 DC 03/25/17 06:20 2 MG Pantoprazole 80 mg ONCE ONCE IV 03/25/17 05:30 03/25/17 05:31 DC 03/25/17 05:28 80 MG Sodium Chloride 1,000 ml @ 0 mls/hr Q0M ONCE IV 03/25/17 06:17 03/25/17 06:18 DC 03/25/17 06:21 0 MLS/HR (JULIETTE BROWN MD) Vital Signs/I&O Vital Sign - Last 12Hours 03/25/17 05:08 Temp 98.2 Pulse 115 Resp 18 B/P (MAP) 162/92 Pulse Ox 100 O2 Delivery Room Air (JULIETTE BROWN MD) Blood Pressure Mean: 115 Progress Note : Time: 06:00 Progress Note IV fluids are being run as started by EMS. Pepcid 20 mg and Protonix 80 mg have been ordered. 2 units of packed red blood cells are being crossmatched. Records are being requested from [facility] in [place]. Zofran 8 mg was given for nausea. (GRETA GEORGES MD) Progress Note : Time: 07:00 Progress Note After telephone consultation with at [facility] the patient was accepted in transfer. An Octreotide drip at 50mcg/hr was ordered. (JULIETTE BROWN MD) Departure Communication Time/Spoke to Admitting Phy: 07:01 (JULIETTE BROWN MD) Impression Impression: Primary Impression: Acute upper GI hemorrhage Additional Impression: Esophageal varices Qualified Codes: I85.01 - Esophageal varices with bleeding Disposition: XFER SHT-TRM HOSP Condition: Stable (ERASED) Transfer Transfer Time: 07:09 Transfer Facility: [facility]ie [facility] to Dr. Zuñiga who accepted the patient in transfer Method of Transfer: EMS (JULIETTE BROWN MD) Departure-Patient Inst. Referrals: NO,LOCAL PHYSICIAN (PCP/Family) Primary Care Physician Scripts No Active Prescriptions or Reported Meds GRETA GEORGES MD March 25, 2017 05:59 JULIETTE BROWN MD March 25, 2017 07:08
[2017-03-25 06:10] LABS: ALANINE AMINOTRANSFERASE 22 U/L (0-55); ALBUMIN 3.4 G/DL (3.2-4.5); ALCOHOL 98 MG/DL (<10); ANION GAP 13 MMOL/L (5-14); ASPARTATE AMINO TRANSFERASE 70 U/L (5-34); BILIRUBIN,TOTAL 1.3 MG/DL (0.1-1.0); BLOOD UREA NITROGEN 19 MG/DL (7-18); BUN/CREATININE RATIO 24; CALCIUM 8.1 MG/DL (8.5-10.1); CARBON DIOXIDE 22 MMOL/L (21-32); CHLORIDE 106 MMOL/L (98-107); GFR ESTIMATED > 60; GLUCOSE 233 MG/DL (70-105); LIPASE 51 U/L (8-78); POTASSIUM 3.4 MMOL/L (3.6-5.0); SODIUM 141 MMOL/L (135-145); TOTAL PROTEIN 6.4 G/DL (6.4-8.2)
[2017-03-25] MEDS ORDERED: NS IV 1000 ML 1,000 ML IV ONE (06:17)
[2017-03-25] MEDS ORDERED: LORazepam INJ 2 MG/ML (ATIVAN) VIAL IVP ONE (06:30)
[2017-03-25] MEDS ORDERED: diphenhydrAMINE 50 MG/ML INJ (BENADRYL) IVP ONE (06:30)
[2017-03-25] MEDS ORDERED: OCTREOTIDE INJECTION 500 MCG in NS (IVPB) 99 ML IV SCH (07:00)
[2017-03-25 08:35] VITALS: BP 165/113
== END 2017-03-25 08:35 | disposition short-term general hospital (02) ==
LOC: EDUNIT# 05:07 → ER 05:08
DX: K92.2 Gastrointestinal hemorrhage, unspecified (principal); I85.01 Esophageal varices with bleeding; F10.20 Alcohol dependence, uncomplicated; Y90.4 Blood alcohol level of 80-99 mg/100 ml
CPT/HCPCS: 36415; 80053; 80306; 80320; 83690; 85025; 85610; 85730; 86850; 86900; 86901; 86920; 96374; 96375

== ENCOUNTER 2017-05-01 05:08 | Emergency (ER) | payer MEDICARE, MEDICAID ==
[~2017-05-01] VITALS: Ht 177.8 cm; Wt 86.2 kg
[2017-05-01] MEDS ORDERED: PANTOPRAZOLE 40 MG/10 ML (PROTONIX) VIAL IV ONE (05:15)
[2017-05-01] MEDS ORDERED: ONDANSETRON 4 MG/2 ML (SDV) Z0FRAN IVP ONE (05:15)
[2017-05-01] MEDS ORDERED: NS IV 1000 ML 1,000 ML IV ONE (05:15)
[2017-05-01] MEDS ORDERED: FAMOTIDINE 20MG/2ML IV (PEPCID) ONE (05:21)
[2017-05-01] MEDS ORDERED: FAMOTIDINE 20MG/2ML IV (PEPCID) IVP ONE (05:30)
[2017-05-01 05:32] LABS: BASOPHILS # (AUTO) 0.1 10^3/uL (0.0-0.1); BASOPHILS % (AUTO) 1 % (0-10); EOSINOPHILS % (AUTO) 0 % (0-10); LYMPHOCYTES # (AUTO) 1.1 X 10^3 (1.0-4.0); LYMPHOCYTES % (AUTO) 7 % (12-44); MEAN CORPUSCULAR HEMOGLOBIN 26 PG (25-34); MEAN CORPUSCULAR HGB CONC 31 G/DL (32-36); MEAN CORPUSCULAR VOLUME 81 FL (80-99); MEAN PLATELET VOLUME 10.6 FL (7.4-10.4); MONOCYTES # (AUTO) 0.9 X 10^3 (0.0-1.0); MONOCYTES % (AUTO) 6 % (0-12); NEUTROPHILS # (AUTO) 12.5 X 10^3 (1.8-7.8); NEUTROPHILS % (AUTO) 86 % (42-75); PLATELET COUNT 173 10^3/uL (130-400); RED BLOOD COUNT 2.58 10^6/uL (4.35-5.85); RED CELL DISTRIBUTION WIDTH 17.8 % (10.0-14.5); WHITE BLOOD COUNT 14.6 10^3/uL (4.3-11.0)
[2017-05-01] MEDS ORDERED: NS (IVPB) 100 ML ONE (05:35)
[2017-05-01] MEDS ORDERED: OCTREOTIDE DRIP KIT ONE (05:36)
--- NOTE | 2017-05-01 05:36 | ED GI ---
General Chief Complaint: Abdominal/GI Problems Stated Complaint: GI BLEED Source of Information: Patient, EMS History of Present Illness Time Seen By Provider: 05:08 Initial Comments PT ARRIVES VIA EMS FROM HOME C/O VOMITING BRIGHT RED BLOOD WITH CLOTS--BEGAN JUST PRIOR TO ARRIVAL BEGAN HAVING BLACK TARRY STOOLS THIS AM WELL C/O ABDOMINAL BLOATING / PRESSURE THIS EVENING PT IS AN ALCOHOLIC AND CONTINUES TO DRINK A PINT OF VODKA A DAY--PT HAS BEEN GIVEN ? ANTABUSE ? BY HIS PCP, BUT PT DOESN'T TAKE IT "BECAUSE IT MAKES ME SICK AND THROW UP WHEN I DRINK, SO I DON'T TAKE IT SO I CAN STILL DRINK" PT HAS HISTORY OF UPPER GI BLEEDS AND WAS SEEN HERE 02/12 AND 03/25 FOR SAME THING AND WAS TRANSFERRED TO [facility] BOTH TIMES AND HAS HAD ESOPHAGEAL BANDING BOTH TIMES EMS REPORTS THAT AT LEAST 100 ML BLOOD WITH CLOTS WAS ON THE FLOOR AT HOUSE. PCP: DR. GUERRERO AT [facility] Allergies and Home Medications Allergies Coded Allergies: Penicillins (Verified Allergy, Unknown, 02/12/17) Home Medications No Active Prescriptions or Reported Meds Review of Systems Constitutional: no symptoms reported, No dizziness, No weakness EENTM: No Symptoms Reported Respiratory: No Symptoms Reported Cardiovascular: No Symptoms Reported Gastrointestinal: See HPI Genitourinary: No Symptoms Reported Musculoskeletal: no symptoms reported Skin: no symptoms reported Psychiatric/Neurological: No Symptoms Reported Endocrine: No Symptoms Reported Hematologic/Lymphatic: See HPI Past Avllgye-Lentgg-Jiqbxl Hx Patient Social History Alcohol Use: Regular Use (PINT OF VODKA A DAY) Recreational Drug Use: No Smoking Status: Current Everyday Smoker (1 PPD) Type Used: Cigars 2nd Hand Smoke Exposure: Yes Recent Hopitalizations: No Seasonal Allergies Seasonal Allergies: No Surgeries HX Surgeries: Yes (ESOPHAGEAL BANDING/EGD) Surgeries: Abdominal Respiratory Hx Respiratory Disorders: No Cardiovascular Hx Cardiac Disorders: No Neurological Hx Neurological Disorders: No Genitourinary Hx Genitourinary Disorders: No Gastrointestinal Hx Gastrointestinal Disorders: Yes Gastrointestinal Disorders: Gastrointestinal Bleed, Esophageal Varices Musculoskeletal Hx Musculoskeletal Disorders: Yes Musculoskeletal Disorders: Chronic Back Pain Endocrine Hx Endocrine Disorders: No HEENT HX ENT Disorders: No Cancer Hx Cancer: No Psychosocial Hx Psychiatric Problems: Yes (alcoholism) Behavioral Health Disorders: Anxiety, Depression Integumentary HX Skin/Integumentary Disorder: No Blood Transfusions Hx Blood Disorders: No Hx of Blood Transfusion YES--FOR GI BLEEDS Adverse Reaction to a Blood Tr: No Family Medical History Significant Family History: No Pertinent Family Hx Physical Exam Vital Signs VS - Last 72 Hours, by Label 05/01/17 05/01/17 05/01/17 05:25 06:12 06:18 Temp 98.2 98.7 Pulse 124 113 116 Resp 24 22 20 B/P (MAP) 154/79 162/83 156/85 Pulse Ox 98 96 97 O2 Delivery Room Air Room Air Capillary Refill : General Appearance: WD/WN, no apparent distress, other (PT IS COVERED IN BLOOD- -SHIRT AND PANTS ARE SATURATED WITH BLOOD AND CLOTS, FACE IS COVERED IN BLOOD, IS HIS HAT, + ODOR OF ETOH) HEENT: PERRL/EOMI Neck: normal inspection Respiratory: normal breath sounds, no respiratory distress, no accessory muscle use Cardiovascular: tachycardia Gastrointestinal: soft, tenderness Extremities: normal inspection, no pedal edema, normal capillary refill Neurologic/Psychiatric: 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, no motor/sensory deficits, alert, normal mood/affect, oriented x 3 Skin: warm/dry, pallor Progress/Results/Core Measures Results/Orders Lab Results Laboratory Tests Test 05/01/17 05:16 Range/Units White Blood Count 14.6 H 4.3-11.0 10^3/uL Red Blood Count 2.58 L 4.35-5.85 10^6/uL Hemoglobin 6.6 *L 13.3-17.7 G/DL Hematocrit 21 L 40-54 % Mean Corpuscular Volume 81 80-99 FL Mean Corpuscular Hemoglobin 26 25-34 PG Mean Corpuscular Hemoglobin Concent 31 L 32-36 G/DL Red Cell Distribution Width 17.8 H 10.0-14.5 % Platelet Count 173 130-400 10^3/uL Mean Platelet Volume 10.6 H 7.4-10.4 FL Neutrophils (%) (Auto) 86 H 42-75 % Lymphocytes (%) (Auto) 7 L 12-44 % Monocytes (%) (Auto) 6 0-12 % Eosinophils (%) (Auto) 0 0-10 % Basophils (%) (Auto) 1 0-10 % Neutrophils # (Auto) 12.5 H 1.8-7.8 X 10^3 Lymphocytes # (Auto) 1.1 1.0-4.0 X 10^3 Monocytes # (Auto) 0.9 0.0-1.0 X 10^3 Eosinophils # (Auto) 0.0 0.0-0.3 10^3/uL Basophils # (Auto) 0.1 0.0-0.1 10^3/uL Prothrombin Time 16.4 H 12.2-14.7 SEC INR Comment 1.4 0.8-1.4 Activated Partial Thromboplast Time 29 24-35 SEC Sodium Level 138 135-145 MMOL/L Potassium Level 3.8 3.6-5.0 MMOL/L Chloride Level 104 98-107 MMOL/L Carbon Dioxide Level 17 L 21-32 MMOL/L Anion Gap 17 H 5-14 MMOL/L Blood Urea Nitrogen 21 H 7-18 MG/DL Creatinine 0.92 0.60-1.30 MG/DL Estimat Glomerular Filtration Rate > 60 BUN/Creatinine Ratio 23 H 0-20 Glucose Level 252 H 70-105 MG/DL Calcium Level 9.6 8.5-10.1 MG/DL Total Bilirubin 1.1 H 0.1-1.0 MG/DL Aspartate Amino Transf (AST/SGOT) 57 H 5-34 U/L Alanine Aminotransferase (ALT/SGPT) 22 0-55 U/L Alkaline Phosphatase 111 40-136 U/L Total Protein 7.1 6.4-8.2 GM/DL Albumin 3.6 3.2-4.5 GM/DL Serum Alcohol 208 H <10 MG/DL My Orders Orders - INDIO SPENCER DO Saline Lock/Iv-Start (05/01/17 05:15) Monitor-Rhythm Ecg Trace Only (05/01/17 05:15) Alcohol (05/01/17 05:15) Cbc With Automated Diff (05/01/17 05:15) Comprehensive Metabolic Panel (05/01/17 05:15) Drug Screen Stat (Urine) (05/01/17 05:15) Protime With Inr (05/01/17 05:15) Partial Thromboplastin Time (05/01/17 05:15) Red Cells Leukocytes Reduced (05/01/17 05:15) Saline Lock/Iv-Start (05/01/17 05:15) Ns Iv 1000 Ml (Sodium Chloride 0.9%) (05/01/17 05:15) Ondansetron Injection (Zofran Injectio (05/01/17 05:15) Pantoprazole Injection (Protonix Injecti (05/01/17 05:15) Type And Screen (05/01/17 05:15) Famotidine Injection (Pepcid Injection) (05/01/17 05:30) Octreotide Injection (Sandostatin Inje (05/01/17 05:45) Ns (Ivpb) (Sodium C... W/Octreotide Inj (05/01/17 05:45) Ns (Ivpb) (Sodium Chloride 0.9% Ivpb Bag (05/01/17 05:35) Octreotide Drip (Octreotide Drip) (05/01/17 05:36) Medications Given in ED Current Medications Medications Dose Ordered Sig/Argelia Route Start Time Stop Time Status Last Admin Dose Admin Famotidine 40 mg ONCE ONCE IVP 05/01/17 05:30 05/01/17 05:31 UNV 05/01/17 05:38 40 MG Ondansetron HCl 4 mg ONCE ONCE IVP 05/01/17 05:15 05/01/17 05:18 DC 05/01/17 05:38 4 MG Pantoprazole 80 mg ONCE ONCE IV 05/01/17 05:15 05/01/17 05:18 DC 05/01/17 05:37 80 MG Sodium Chloride 1,000 ml @ 0 mls/hr Q0M ONCE IV 05/01/17 05:15 05/01/17 05:18 DC 05/01/17 05:38 999 MLS/HR Vital Signs/I&O Vital Sign - Last 12Hours 05/01/17 05/01/17 05/01/17 05:25 06:12 06:18 Temp 98.2 98.7 Pulse 124 113 116 Resp 24 22 20 B/P (MAP) 154/79 162/83 156/85 Pulse Ox 98 96 97 O2 Delivery Room Air Room Air Progress Note : Progress Note NO DETERIORATION IN PT'S CONDITION DURING ER STAY HEART RATE DOWN AND BP STABLE IN 150'S SYSTOLIC. Critical Care Note Critical Care Total Time (minutes) 30 Departure Communication Progress Notes 0515--CALLED [facility]IN PALACIOS ONE CALL 05--SPOKE WITH DR. BRADSHAW, ER PHYSICIAN, ACCEPTS PT FOR TRANSFER. 0521--[facility] DISPATCH CONTACTED FOR EMERGENT TRANSFER Impression Impression: Primary Impression: Acute upper GI hemorrhage Additional Impressions: History of esophageal varices with bleeding Alcoholism /alcohol abuse Acute blood loss anemia Disposition: XFER SHT-TRM HOSP Condition: Critical Departure-Patient Inst. Referrals: NO,LOCAL PHYSICIAN (PCP/Family) Primary Care Physician Scripts No Active Prescriptions or Reported Meds INDIO SPENCER DO May 01, 2017 05:36
[2017-05-01 05:41] LABS: INR 1.4 (0.8-1.4); PROTHROMBIN TIME PATIENT 16.4 SEC (12.2-14.7)
[2017-05-01] MEDS ORDERED: OCTREOTIDE INJECTION 500 MCG in NS (IVPB) 99 ML IV SCH (05:45)
[2017-05-01] MEDS ORDERED: OCTREOTIDE (FOR SQ USE) 100 MCG/ML VIAL (SandoSTATIN) SC ONE (05:45)
[2017-05-01 05:49] LABS: ALANINE AMINOTRANSFERASE 22 U/L (0-55); ALBUMIN 3.6 GM/DL (3.2-4.5); ALCOHOL 208 MG/DL (<10); ANION GAP 17 MMOL/L (5-14); ASPARTATE AMINO TRANSFERASE 57 U/L (5-34); BILIRUBIN,TOTAL 1.1 MG/DL (0.1-1.0); BLOOD UREA NITROGEN 21 MG/DL (7-18); BUN/CREATININE RATIO 23 (0-20); CALCIUM 9.6 MG/DL (8.5-10.1); CARBON DIOXIDE 17 MMOL/L (21-32); CHLORIDE 104 MMOL/L (98-107); CREATININE SERUM 0.92 MG/DL (0.60-1.30); GFR ESTIMATED > 60; GLUCOSE 252 MG/DL (70-105); HEMOLYSIS 1 (-100-29); ICTERUS 0.7 (-100-1.9); LIPEMIA -3 (-100-49); POTASSIUM 3.8 MMOL/L (3.6-5.0); SODIUM 138 MMOL/L (135-145); TOTAL PROTEIN 7.1 GM/DL (6.4-8.2)
[2017-05-01 06:12] VITALS: BP 162/83
[2017-05-01 06:18] VITALS: BP 156/85
[2017-05-01 06:33] VITALS: BP 159/73
[2017-05-01 06:44] VITALS: BP 159/73
== END 2017-05-01 06:44 ==
LOC: EDUNIT# 05:10 → ER 05:11
DX: K92.2 Gastrointestinal hemorrhage, unspecified (principal); F10.20 Alcohol dependence, uncomplicated; D62 Acute posthemorrhagic anemia; F17.290 Nicotine dependence, other tobacco product, uncomplicated; Z87.19 Personal history of other diseases of the digestive system
CPT/HCPCS: 36415; 36430; 80053; 80320; 85025; 85610; 85730; 86850; 86900; 86901; 86920; 93041

== ENCOUNTER 2017-07-08 19:37 | Emergency (ER) | payer MEDICARE, MEDICAID ==
[~2017-07-08] VITALS: Ht 177.8 cm; Wt 98.0 kg
[~2017-07-08 19:37] MED LIST changes: +CHLO10CA6 PO; +CLON1TAB3 PO; +FURO-124 PO; +PANT40TA2 PO; +POTA-51 PO; +SPIR100T PO
[2017-07-08 19:57] LABS: BASOPHILS # (AUTO) 0.1 10^3/uL (0.0-0.1); BASOPHILS % (AUTO) 0 % (0-10); EOSINOPHILS % (AUTO) 0 % (0-10); LYMPHOCYTES # (AUTO) 1.5 X 10^3 (1.0-4.0); LYMPHOCYTES % (AUTO) 9 % (12-44); MEAN CORPUSCULAR HEMOGLOBIN 24 PG (25-34); MEAN CORPUSCULAR HGB CONC 31 G/DL (32-36); MEAN CORPUSCULAR VOLUME 78 FL (80-99); MEAN PLATELET VOLUME 10.9 FL (7.4-10.4); MONOCYTES # (AUTO) 1.4 X 10^3 (0.0-1.0); MONOCYTES % (AUTO) 9 % (0-12); NEUTROPHILS % (AUTO) 82 % (42-75); PLATELET COUNT 253 10^3/uL (130-400); RED CELL DISTRIBUTION WIDTH 20.4 % (10.0-14.5); WHITE BLOOD COUNT 15.9 10^3/uL (4.3-11.0)
[2017-07-08 20:07] LABS: INR 1.6 (0.8-1.4); PROTHROMBIN TIME PATIENT 18.8 SEC (12.2-14.7)
--- NOTE | 2017-07-08 20:07 | ED General ---
General Chief Complaint: Abdominal/GI Problems Stated Complaint: BLOODY STOOL Nursing Triage Note: bloody stools x 5 days Nursing Sepsis Screen: No Definite Risk Source of Information: Patient Exam Limitations: No Limitations History of Present Illness Time Seen by Provider: 19:38 Initial Comments This 56-year-old man with liver failure, ascites, esophageal varices, and alcoholic cirrhosis presents to the emergency room with bloody stools 5 days. He was admitted at this facility on June 21 for paracentesis. He follows with [facility] in [place] for his gastrointestinal care. He is scheduled to enroll in a detox program in [place], [place] on Tuesday of next week. He continues to drink alcohol with his last drink being earlier today. He has had worsening abdominal distention over the last couple of days. EMS reports he has been tachycardic with a heart rate in the 120s. He has been rather weak at home. He complains of abdominal pain radiating into the back. He is afebrile. Allergies and Home Medications Allergies Coded Allergies: Penicillins (Verified Allergy, Unknown, 02/12/17) Home Medications Furosemide 40 Mg Tablet, 40 MG PO DAILY, #30 Ref 1 Prescribed by: ZEYNEP GARAY on 06/21/17 1052 Pantoprazole Sodium 40 Mg Tablet.dr, 40 MG PO DAILY PRN for ACID REFLUX, ( Reported) Potassium Chloride 20 Meq Tablet.er, 20 MEQ PO DAILY, #30 Ref 1 Prescribed by: ZEYNEP GARAY on 06/21/17 1052 Spironolactone 100 Mg Tablet, 100 MG PO DAILY, #30 Ref 1 Prescribed by: ZEYNEP GARAY on 06/21/17 1052 Constitutional: see HPI EENTM: no symptoms reported Respiratory: no symptoms reported Cardiovascular: see HPI Gastrointestinal: see HPI Genitourinary: no symptoms reported Musculoskeletal: no symptoms reported Skin: no symptoms reported Psychiatric/Neurological: No Symptoms Reported Hematologic/Lymphatic: No Symptoms Reported Past Uhtqqvm-Jpaktz-Ahcliu Hx Patient Social History Alcohol Use: Regular Use Number of Drinks Today: FF Alcohol Beverage of Choice: Vodka Recreational Drug Use: No Smoking Status: Current Everyday Smoker Type Used: Cigars 2nd Hand Smoke Exposure: Yes Recent Foreign Travel: No Contact w/Someone Who Travel: No Recent Infectious Disease Expo: No Recent Hopitalizations: No Seasonal Allergies Seasonal Allergies: No Surgeries History of Surgeries: Yes (esophageal banding) Surgeries: Abdominal Respiratory History of Respiratory Disorde: No Cardiovascular History of Cardiac Disorders: No Neurological History of Neurological Disord: No Reproductive System Hx Reproductive Disorders: No Genitourinary History of Genitourinary Disor: No Gastrointestinal History of Gastrointestinal Di: Yes Gastrointestinal Disorders: Liver Disease/Jaundice, Gastrointestinal Bleed, Esophageal Varices, Cirrhosis Musculoskeletal History of Musculoskeletal Dis: Yes Musculoskeletal Disorders: Chronic Back Pain Endocrine History of Endocrine Disorders: No HEENT History of HEENT Disorders: No Cancer History of Cancer: No Psychosocial History of Psychiatric Problem: Yes (alcoholism) Behavioral Health Disorders: Anxiety, PTSD, Depression Integumentary History of Skin or Integumenta: No Blood Transfusions History of Blood Disorders: Yes Adverse Reaction to a Blood Tr: No Family Medical History Significant Family History: No Pertinent Family Hx Family Medial History: Physical Exam Vital Signs Vital Sign - Last 12Hours 07/08/17 07/08/17 19:43 21:39 Temp 98.0 Pulse 119 Resp 18 B/P (MAP) 130/72 Pulse Ox 100 O2 Delivery Room Air Capillary Refill : Less Than 3 Seconds General Appearance: WD/WN, Moderate Distress HEENT: PERRL/EOMI, Normal ENT Inspection, Other (pharynx very dry) Neck: Normal Inspection Respiratory: Lungs Clear, Normal Breath Sounds, No Accessory Muscle Use, No Respiratory Distress Cardiovascular: No Murmur, Tachycardia (regular) Gastrointestinal: Normal Bowel Sounds, Distended, Tenderness (diffusely moderately tender to palpation) Extremity: Normal Inspection, No Pedal Edema Neurologic/Psychiatric: Alert, Oriented x3, No Motor/Sensory Deficits, Normal Mood/Affect, brand strategist II-XII Norm as Tested, Other (mild tremor) Skin: Normal Color, Pallor Focused Exam Evaluation Lactate Level Laboratory Tests 07/08/17 20:00: Lactic Acid Level 4.93*H Lactic Acid Level Progress/Results/Core Measures Results/Orders Lab Results Laboratory Tests Test 07/08/17 19:40 07/08/17 20:00 Range/Units White Blood Count 15.9 H 4.3-11.0 10^3/uL Red Blood Count 2.10 L 4.35-5.85 10^6/uL Hemoglobin 5.1 *L 13.3-17.7 G/DL Hematocrit 16 *L 40-54 % Mean Corpuscular Volume 78 L 80-99 FL Mean Corpuscular Hemoglobin 24 L 25-34 PG Mean Corpuscular Hemoglobin Concent 31 L 32-36 G/DL Red Cell Distribution Width 20.4 H 10.0-14.5 % Platelet Count 253 130-400 10^3/uL Mean Platelet Volume 10.9 H 7.4-10.4 FL Neutrophils (%) (Auto) 82 H 42-75 % Lymphocytes (%) (Auto) 9 L 12-44 % Monocytes (%) (Auto) 9 0-12 % Eosinophils (%) (Auto) 0 0-10 % Basophils (%) (Auto) 0 0-10 % Neutrophils # (Auto) 13.0 H 1.8-7.8 X 10^3 Lymphocytes # (Auto) 1.5 1.0-4.0 X 10^3 Monocytes # (Auto) 1.4 H 0.0-1.0 X 10^3 Eosinophils # (Auto) 0.0 0.0-0.3 10^3/uL Basophils # (Auto) 0.1 0.0-0.1 10^3/uL Prothrombin Time 18.8 H 12.2-14.7 SEC INR Comment 1.6 H 0.8-1.4 Activated Partial Thromboplast Time 31 24-35 SEC Sodium Level 130 L 135-145 MMOL/L Potassium Level 4.5 3.6-5.0 MMOL/L Chloride Level 96 L 98-107 MMOL/L Carbon Dioxide Level 20 L 21-32 MMOL/L Anion Gap 14 5-14 MMOL/L Blood Urea Nitrogen 50 H 7-18 MG/DL Creatinine 1.19 0.60-1.30 MG/DL Estimat Glomerular Filtration Rate > 60 BUN/Creatinine Ratio 42 Glucose Level 189 H 70-105 MG/DL Calcium Level 8.2 L 8.5-10.1 MG/DL Magnesium Level 1.2 L 1.8-2.4 MG/DL Total Bilirubin 2.1 H 0.1-1.0 MG/DL Aspartate Amino Transf (AST/SGOT) 90 H 5-34 U/L Alanine Aminotransferase (ALT/SGPT) 32 0-55 U/L Alkaline Phosphatase 131 40-136 U/L C-Reactive Protein High Sensitivity 4.17 H 0.00-0.50 MG/DL Total Protein 6.2 L 6.4-8.2 GM/DL Albumin 2.6 L 3.2-4.5 GM/DL Lipase 157 H 8-78 U/L Serum Alcohol 169 H <10 MG/DL Lactic Acid Level 4.93 *H 0.50-2.00 MMOL/L Micro Results Microbiology 07/08/17 Blood Culture - Preliminary, Resulted No growth 07/08/17 Blood Culture - Preliminary, Resulted No growth My Orders Orders - GRETA GEORGES MD Cbc With Automated Diff (07/08/17 19:42) Comprehensive Metabolic Panel (07/08/17 19:42) Lactic Acid Analyzer (07/08/17 19:42) Blood Culture (07/08/17 19:42) Protime With Inr (07/08/17 19:42) Partial Thromboplastin Time (07/08/17 19:42) Chest 1 View, Ap/Pa Only (07/08/17 19:42) O2 (07/08/17 19:42) Saline Lock/Iv-Start (07/08/17 19:42) Saline Lock/Iv-Start (07/08/17 19:42) Vital Signs Adult Sepsis Patie Q1HR (07/08/17 19:42) Remove Rings In Anticipation O (07/08/17 19:42) Alcohol (07/08/17 19:42) Hs C Reactive Protein (07/08/17 19:42) Lipase (07/08/17 19:42) Magnesium (07/08/17 19:42) Ns Iv 500 Ml (Sodium Chloride 0.9%) (07/08/17 19:42) Red Cells Leukocytes Reduced (07/08/17 19:42) Type And Screen (07/08/17 19:42) Red Cells Leukocytes Reduced (07/08/17 19:40) Pantoprazole Injection (Protonix Injecti (07/08/17 20:15) Famotidine Injection (Pepcid Injection) (07/08/17 20:15) Ct Abdomen/Pelvis W (07/08/17 20:27) Fentanyl Injection (Sublimaze Injection (07/08/17 20:45) Iohexol Injection (Omnipaque 350 Mg/Ml 1 (07/08/17 20:30) Di Iv Start (Assessment) .on IV start (07/08/17 20:29) Ns (Ivpb) (Sodium Chloride 0.9% Ivpb Bag (07/08/17 20:30) Levofloxacin 750 Mg/150 Ml Iv (Levaquin (07/08/17 21:06) Levofloxacin 750 Mg/150 Ml Iv (Levaquin (07/08/17 21:15) Medications Given in ED Vital Signs/I&O Blood Pressure Mean: 91 Progress Note #1: Time: 20:06 Progress Note Patient's hemoglobin returned as 5.1. 4 units of blood have been ordered, 2 to give and 2 to hold. 500 mL normal saline bolus is running at this time due to tachycardia. Fentanyl will be administered for pain. Progress Note #2: Time: 20:[address] abdomen is pelvis is pending. Patient reports he has a history of banded esophageal varices. For this reason, he will need to be transferred to a facility that can handle esophageal banding since this is not available at [facility] at this time. Protonix and Pepcid are being administered. 4 units of blood have been ordered, 2 units to transfuse and 2 units to hold. Progress Note #3: Time: 21:10 Progress Note Vital signs remained stable. I did discuss the case with Dr. Lance, surgeon airport operations crew member, who agrees patient should be transferred to [facility] by ground due to history of esophageal varices. Patient is more comfortable after fentanyl. CT report pending. Transfer to [facility] was accepted by Dr. Blanco. Patient will be transferred by [facility]. Sepsis is a possibility given the tachycardia and leukocytosis. Levaquin has been ordered for initial antibiotic therapy. Diagnostic Imaging Diagonstic Imaging: Xray Plain Films/CT/US/NM/MRI: chest Comments NAME: [facility]ARANDA [facility] REC#: [id number] PT STATUS: REG ER : 1960 PHYSICIAN: GRETA GEORGES MD ADMIT DATE: 07/08/17/ER Signed Date of Exam: 07/08/17 CHEST 1 VIEW, AP/PA ONLY INDICATION: GI bleeding. EXAMINATION: Portable chest at 7:58 p.m. FINDINGS: Heart size and pulmonary vascularity are normal. Lungs are clear. There are no effusions or pneumothoraces. IMPRESSION: Negative chest. Dictated by: Dictated on workstation # [id number] Dict: 07/08/172003 Trans: 07/08/172028 Interpreted by: ANGUS RODRIGEZ Electronically signed by: ANGUS RODRIGEZ 07/08/172028 Diagonstic Imaging: CT Plain Films/CT/US/NM/MRI: abdomen, pelvis Comments CT abdomen and pelvis viewed by me and Dr. Lance. Report reviewed. See report below: NAME: MARANDA KIM [facility] REC#: [id number] PT STATUS: REG ER : 1960 PHYSICIAN: GRETA GEORGES MD ADMIT DATE: 07/08/17/ER Signed Date of Exam: 07/08/17 CT ABDOMEN/PELVIS W PROCEDURE: CT abdomen and pelvis with contrast. TECHNIQUE: Multiple contiguous axial images were obtained through the abdomen and pelvis after administration of intravenous contrast. INDICATION: Abdominal pain. FINDINGS: There is large amount of ascites. There is irregular density on the liver probably due to fatty infiltration. Spleen is not enlarged. Pancreas appears normal. Kidneys and adrenals appear normal. Prostate is unremarkable. Colon appears normal. There is no intraperitoneal free air. IMPRESSION: Abnormal density of the liver could be from fatty infiltration or hepatitis. There is a large volume of ascites present. Dictated by: Dictated on workstation # [id number] Dict: 07/08/172099 Trans: 07/08/172121 Interpreted by: ANGUS RODRIGEZ Electronically signed by: ANGUS RODRIGEZ 07/08/172121 Departure Impression Impression: Primary Impression: Severe anemia Additional Impressions: Upper GI bleed Esophageal varices Qualified Codes: I85.01 - Esophageal varices with bleeding Tachycardia Leukocytosis Qualified Codes: D72.829 - Elevated white blood cell count, unspecified Abdominal pain Qualified Codes: R10.84 - Generalized abdominal pain Ascites Qualified Codes: K70.11 - Alcoholic hepatitis with ascites Hypomagnesemia Alcoholic liver failure Disposition: XF SHT-TRM HOSP Condition: Improved Transfer Transfer Time: 21:39 Transfer Facility: To [facility] under Dr. Blanco. Method of Transfer: EMS Departure-Patient Inst. Referrals: NO,LOCAL PHYSICIAN (PCP/Family) Primary Care Physician GRETA GEORGES MD Jul 08, 2017 20:07
[2017-07-08 20:16] LABS: ALANINE AMINOTRANSFERASE 32 U/L (0-55); ALBUMIN 2.6 GM/DL (3.2-4.5); ALCOHOL 169 MG/DL (<10); ANION GAP 14 MMOL/L (5-14); ASPARTATE AMINO TRANSFERASE 90 U/L (5-34); BILIRUBIN,TOTAL 2.1 MG/DL (0.1-1.0); BLOOD UREA NITROGEN 50 MG/DL (7-18); BUN/CREATININE RATIO 42; CALCIUM 8.2 MG/DL (8.5-10.1); CARBON DIOXIDE 20 MMOL/L (21-32); CHLORIDE 96 MMOL/L (98-107); CREATININE SERUM 1.19 MG/DL (0.60-1.30); GFR ESTIMATED > 60; GLUCOSE 189 MG/DL (70-105); LIPASE 157 U/L (8-78); MAGNESIUM 1.2 MG/DL (1.8-2.4); POTASSIUM 4.5 MMOL/L (3.6-5.0); SODIUM 130 MMOL/L (135-145); TOTAL PROTEIN 6.2 GM/DL (6.4-8.2); hs C REACTIVE PROTEIN 4.17 MG/DL (0.00-0.50)
--- NOTE | 2017-07-08 20:19 | Diagnostic Imaging Report ---
INDICATION: GI bleeding. EXAMINATION: Portable chest at 7:58 p.m. FINDINGS: Heart size and pulmonary vascularity are normal. Lungs are clear. There are no effusions or pneumothoraces. IMPRESSION: Negative chest. Dictated by: Dictated on workstation # [id number]
[2017-07-08] MEDS: NS IV 500 ML 500 ML IV ONE (20:23)
[2017-07-08] MEDS: FAMOTIDINE 20MG/2ML IV (PEPCID) IVP ONE (20:23)
[2017-07-08] MEDS: PANTOPRAZOLE 40 MG/10 ML (PROTONIX) VIAL IV ONE (20:23)
[2017-07-08] MEDS: fentaNYL INJECTION 100 MCG/2 ML AMP IVP ONE (20:40)
[2017-07-08] MEDS: IOHEXOL 350 MG/ML 100 ML (OMNIPAQUE 350) VIAL IV ONE (20:52)
[2017-07-08] MEDS: NS 100 ML (IVPB) BAG IV ONE (20:53)
[2017-07-08] MEDS ORDERED: LEVOFLOXACIN 750 MG/150 ML IV 150 ML IV ONE (21:06)
--- NOTE | 2017-07-08 21:07 | Diagnostic Imaging Report ---
PROCEDURE: CT abdomen and pelvis with contrast. TECHNIQUE: Multiple contiguous axial images were obtained through the abdomen and pelvis after administration of intravenous contrast. INDICATION: Abdominal pain. FINDINGS: There is large amount of ascites. There is irregular density on the liver probably due to fatty infiltration. Spleen is not enlarged. Pancreas appears normal. Kidneys and adrenals appear normal. Prostate is unremarkable. Colon appears normal. There is no intraperitoneal free air. IMPRESSION: Abnormal density of the liver could be from fatty infiltration or hepatitis. There is a large volume of ascites present. Dictated by: Dictated on workstation # [id number]
[2017-07-08] MEDS: LEVOFLOXACIN 750 MG/150 ML IV 150 ML IV ONE (21:21)
[2017-07-08 21:39] VITALS: BP 121/69
--- OUTSIDE RECORDS SUMMARY | 2017-07-11 08:33 | XMS REPORT | Continuity of Care Document ---
Author Author [facility] Address Unknown Phone Unavailable Allergies Active Description [...] YOLANDA AGUILAR, ROSALINDA 727.3 BURSITIS 12/04/2009 MICHAEL COMPUTER SYSTEMS TECHNOLOGY INSTRUCTOR, EVELIN M 681.11 PARONYCHIA 12/04/2009 MICHAEL COMPUTER SYSTEMS TECHNOLOGY INSTRUCTOR, EVELIN M 727.3 BURSITIS 12/04/2009 MICHAEL COMPUTER SYSTEMS TECHNOLOGY INSTRUCTOR, EVELIN M 681.11 PARONYCHIA 12/04/2009 MICHAEL COMPUTER SYSTEMS TECHNOLOGY INSTRUCTOR, EVELIN M 727.3 BURSITIS 01/20/2010 ROSALINDA GUERRERO [...] 311 DEPRESSIVE DISORDER, NOT ELSEWHERE CLASSIFIED 01/20/2010 GARTON PROCUREMENT INSPECTOR, FRANK D 298.9 UNSPECIFIED PSYCHOSIS 01/20/2010 FRANK MUÑIZ APRN [...] DEPRESSIVE DISORDER, NOT ELSEWHERE CLASSIFIED 01/20/2010 MICHAEL COMPUTER SYSTEMS TECHNOLOGY INSTRUCTOR, EVELIN M 298.9 UNSPECIFIED PSYCHOSIS 01/20/2010 MICHAEL COMPUTER SYSTEMS TECHNOLOGY INSTRUCTOR, EVELIN M 311 DEPRESSIVE DISORDER, NOT ELSEWHERE CLASSIFIED 01/20/2010 MICHAEL COMPUTER SYSTEMS TECHNOLOGY INSTRUCTOR, EVELIN M 298.9 UNSPECIFIED PSYCHOSIS 01/20/2010 MICHAEL COMPUTER SYSTEMS TECHNOLOGY INSTRUCTOR, EVELIN M 311 DEPRESSIVE DISORDER, NOT ELSEWHERE [...] MD 300.00 AN ANXIETY UNSPEC 08/18/2010 MICHAEL COMPUTER SYSTEMS TECHNOLOGY INSTRUCTOR, EVELIN M 300.00 AN ANXIETY UNSPEC 08/18/2010 [...] Trevino 607.84 IMPOTENCE OF ORGANIC ORIGIN 09/01/2012 EVELIN CABALLERO 607.84 IMPOTENCE OF ORGANIC ORIGIN 02/15/2013 ROSALINDA [...] Procedures Code [place] [address] URINE DRUG SCREEN (IN-HOUSE) 02/15/2013 85401 PSYCH DIAG EVAL W/MED SRVCS 02/19/2013 11053 A1C (IN-HOUSE) 30410 CBC 06/21/2013 72067 CMP 06/21/2013 27965 LIPID PANEL 06/21 6853025 GFR CALC (RESULT ONLY) 06/21/2013 20321 LITHIUM 2012 23636 TSH 06/21/2013 69552 CLONAZEPAM (KLONOPIN) 02/08/2014 99451 ROUTINE VENIPUNCTURE 02/08/2014 48037 CBC 02/08/2014 0205187 GFR CALC (RESULT ONLY) 02/08/2014 82688 CMP 02/08/2014 42601 LITHIUM 2013 72254 TSH 02/08/2014 24427 [facility] 09/19/2014 12884 LITHIUM 2013 66583 [facility] 09/19/2014 53549 PSYCH PHARM MGMT 09/19/2014 06895 CMP 09/20/2014 58638 LITHIUM 2013 04368 TSH 09/20/2014 46992 PSYCH PHARM MGMT 09/20/2014 25704 ROUTINE VENIPUNCTURE 10/08/20144422073 GFR CALC (RESULT ONLY) 10/08/2014 41712 [facility] 10/08/2014 73639 LITHIUM 2013 75577 [facility] 10/08/2014 Results Encounters ACCT No. Visit Date/Time Discharge Status Pt. Type Provider Facility Loc./Unit Complaint [id number] 10/08/2014 11:57:00 10/08/2014 23: 59:59 CLS Outpatient EVELIN CABALLERO [id number] 09/18/2014 13:56:00 09/18/2014 23: 59:59 CLS Outpatient EVELIN CABALLERO [id number] 09/03/2014 14:15:00 09/03/2014 23: 59:59 CLS Outpatient ROSALINDA GUERRERO MD [id number] 02/19/2014 09:40:00 02/19/2014 23: 59:59 CLS Outpatient ROSALINDA GUERRERO MD [id number] 02/08/2014 11:27:00 02/08/2014 23: 59:59 CLS Outpatient FRANK MUÑIZ APRN [id number] 02/05/2014 14:59:00 02/05/2014 23: 59:59 CLS Outpatient FRANK MUÑIZ APRN [id number] 11/27/2013 15:14:00 11/27/2013 23: 59:59 CLS Outpatient FRANK MUÑIZ APRN [id number] 08/27/2013 15:57:00 08/27/2013 23: 59:59 CLS Outpatient ROSALINDA GUERRERO MD [id number] 08/14/2013 12:57:00 08/14/2013 23: 59:59 CLS Outpatient FRANK MUÑIZ APRN [id number] 08/14/2013 12:57:00 08/14/2013 23: 59:59 CLS Outpatient FRANK MUÑIZ APRN [id number] 02/15/2013 12:56:00 02/15/2013 23: 59:59 CLS Outpatient ROSALINDA GUERRERO MD [id number] 06/21/2013 09:14:00 Document Registration [id number] 05/03/2013 12:16:00 Document Registration [id number] 05/03/2013 12:16:00 Document Registration [id number] 04/17/2013 12:32:00 Document Registration
== END 2017-07-08 21:39 | disposition short-term general hospital (02) ==
LOC: EDUNIT# 19:37 → ER 19:37
DX: D64.9 Anemia, unspecified (principal); K92.2 Gastrointestinal hemorrhage, unspecified; I85.00 Esophageal varices without bleeding; D72.829 Elevated white blood cell count, unspecified; R18.8 Other ascites; E83.42 Hypomagnesemia; K70.40 Alcoholic hepatic failure without coma; F41.9 Anxiety disorder, unspecified; F43.10 Post-traumatic stress disorder, unspecified; F32.9 Major depressive disorder, single episode, unspecified; R00.2 Palpitations; F10.20 Alcohol dependence, uncomplicated; F17.290 Nicotine dependence, other tobacco product, uncomplicated; Z98.890 Other specified postprocedural states; Z87.19 Personal history of other diseases of the digestive system
CPT/HCPCS: 36415; 71010; 74177; 80053; 80320; 83605; 83690; 83735; 85025; 85610; 85730; 86141; 86850; 86900; 86901; 86920; 87040

== ENCOUNTER 2017-07-21 21:56 | Inpatient (IN) | payer MEDICARE, MEDICAID ==
[~2017-07-21] VITALS: Ht 177.8 cm; Wt 90.7 kg
[2017-07-21] MEDS ORDERED: fentaNYL INJECTION 100 MCG/2 ML AMP IVP STA ×2 (22:17→23:23)
--- NOTE | 2017-07-21 22:23 | ED General ---
General Stated Complaint: ABDOMINAL PAIN Source of Information: Patient Exam Limitations: No Limitations History of Present Illness Time Seen by Provider: 22:10 Initial Comments Here by EMS with report of increasing abdominal girth and distention as well as back pain. Main complaint is back pain. 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 He has not stopped drinking alcohol. He was in the hospital at [facility] in [place] recently due to GI bleed. He is also been admitted here recently for ascites requiring paracentesis. Patient was noted to be anemic on previous visits requiring blood transfusion. Last hospitalization here, primary care physician discussed with patient regarding his prognosis. There is concerns related to his prognosis and is continuing to use alcohol. He currently is still drinking alcohol. Denies fever or chills. Denies vomiting or diarrhea or blood in his stool. Denies dark stools and states that all of that has cleared up since his last hospitalization. His main concern is back pain. Timing/Duration: 2-3 Days Severity: Moderate Associated Systoms: No Chest Pain, No Cough, No Fever/Chills, No Nausea/ Vomiting, No Shortness of Air, Weakness Allergies and Home Medications Allergies Coded Allergies: Penicillins (Verified Allergy, Unknown, 02/12/17) Home Medications Furosemide 40 Mg Tablet, 40 MG PO DAILY, #30 Ref 1 Prescribed by: ZEYNEP GARAY on 06/21/17 1052 Pantoprazole Sodium 40 Mg Tablet.dr, 40 MG PO DAILY PRN for ACID REFLUX, ( Reported) Potassium Chloride 20 Meq Tablet.er, 20 MEQ PO DAILY, #30 Ref 1 Prescribed by: ZEYNEP GARAY on 06/21/17 1052 Spironolactone 100 Mg Tablet, 100 MG PO DAILY, #30 Ref 1 Prescribed by: ZEYNEP GARAY on 06/21/17 1052 Constitutional: see HPI, No chills, No fever, weakness EENTM: no symptoms reported Respiratory: no symptoms reported Cardiovascular: no symptoms reported Gastrointestinal: abdominal pain, No hematemesis, No melena, No nausea, No vomiting Genitourinary: no symptoms reported Musculoskeletal: back pain, No muscle pain Skin: no symptoms reported Psychiatric/Neurological: No Symptoms Reported All Other Systems Reviewed Negative Unless Noted: Yes Past Ttsbnrn-Sxskfe-Vywzxw Hx Patient Social History Alcohol Use: Regular Use Alcohol Beverage of Choice: Vodka Smoking Status: Current Everyday Smoker Type Used: Cigars 2nd Hand Smoke Exposure: Yes Recent Foreign Travel: No Contact w/Someone Who Travel: No Recent Hopitalizations: No Seasonal Allergies Seasonal Allergies: No Surgeries History of Surgeries: Yes (esophageal banding) Surgeries: Abdominal Respiratory History of Respiratory Disorde: No Cardiovascular History of Cardiac Disorders: No Neurological History of Neurological Disord: No Reproductive System Hx Reproductive Disorders: No Genitourinary History of Genitourinary Disor: No Gastrointestinal History of Gastrointestinal Di: Yes Gastrointestinal Disorders: Liver Disease/Jaundice, Gastrointestinal Bleed, Esophageal Varices, Cirrhosis Musculoskeletal History of Musculoskeletal Dis: Yes Musculoskeletal Disorders: Chronic Back Pain Endocrine History of Endocrine Disorders: No HEENT History of HEENT Disorders: No Cancer History of Cancer: No Psychosocial History of Psychiatric Problem: Yes (alcoholism) Behavioral Health Disorders: Anxiety, PTSD, Depression Integumentary History of Skin or Integumenta: No Blood Transfusions History of Blood Disorders: Yes Adverse Reaction to a Blood Tr: No Reviewed Nursing Assessment Reviewed/Agree w Nursing PMH: Yes Family Medical History Significant Family History: No Pertinent Family Hx Family Medial History: Physical Exam Vital Signs Vital Sign - Last 12Hours 07/21/17 21:56 Temp 97.0 Pulse 102 Resp 17 B/P (MAP) 91/58 Pulse Ox 100 O2 Delivery Room Air Capillary Refill : General Appearance: No Apparent Distress, WD/WN HEENT: PERRL/EOMI, Pharynx Normal Neck: Non Tender, Supple Respiratory: Lungs Clear, Normal Breath Sounds Cardiovascular: Regular Rate, Rhythm, No Murmur Gastrointestinal: Soft, Distended, Tenderness Back: Normal Inspection, No CVA Tenderness, No Vertebral Tenderness Extremity: Non Tender, No Calf Tenderness Neurologic/Psychiatric: Alert, Oriented x3 Skin: Normal Color, Warm/Dry Focused Exam Evaluation Lactate Level Laboratory Tests 07/21/17 22:49: Lactic Acid Level 3.85*H 07/22/17 00:54: Lactic Acid Level Laboratory Tests Test 07/21/17 22:49 07/22/17 00:54 Lactic Acid Level 3.85 MMOL/L (0.50-2.00) *H Progress/Results/Core Measures Results/Orders Lab Results Laboratory Tests Test 07/21/17 22:03 07/21/17 22:49 07/22/17 00:54 Range/Units White Blood Count 12.0 H 4.3-11.0 10^3/uL Red Blood Count 2.52 L 4.35-5.85 10^6/uL Hemoglobin 6.6 *L 13.3-17.7 G/DL Hematocrit 21 L 40-54 % Mean Corpuscular Volume 82 80-99 FL Mean Corpuscular Hemoglobin 26 25-34 PG Mean Corpuscular Hemoglobin Concent 32 32-36 G/DL Red Cell Distribution Width 18.9 H 10.0-14.5 % Platelet Count 372 130-400 10^3/uL Mean Platelet Volume 11.3 H 7.4-10.4 FL Neutrophils (%) (Auto) 78 H 42-75 % Lymphocytes (%) (Auto) 15 12-44 % Monocytes (%) (Auto) 7 0-12 % Eosinophils (%) (Auto) 0 0-10 % Basophils (%) (Auto) 1 0-10 % Neutrophils # (Auto) 9.3 H 1.8-7.8 X 10^3 Lymphocytes # (Auto) 1.8 1.0-4.0 X 10^3 Monocytes # (Auto) 0.8 0.0-1.0 X 10^3 Eosinophils # (Auto) 0.0 0.0-0.3 10^3/uL Basophils # (Auto) 0.1 0.0-0.1 10^3/uL Prothrombin Time 18.6 H 12.2-14.7 SEC INR Comment 1.6 H 0.8-1.4 Activated Partial Thromboplast Time 36 H 24-35 SEC Sodium Level 133 L 135-145 MMOL/L Potassium Level 4.5 3.6-5.0 MMOL/L Chloride Level 103 98-107 MMOL/L Carbon Dioxide Level 20 L 21-32 MMOL/L Anion Gap 10 5-14 MMOL/L Blood Urea Nitrogen 27 H 7-18 MG/DL Creatinine 1.27 0.60-1.30 MG/DL Estimat Glomerular Filtration Rate 59 BUN/Creatinine Ratio 21 Glucose Level 172 H 70-105 MG/DL Lactic Acid Level 3.85 *H 0.50-2.00 MMOL/L Calcium Level 7.7 L 8.5-10.1 MG/DL Magnesium Level 1.7 L 1.8-2.4 MG/DL Total Bilirubin 2.0 H 0.1-1.0 MG/DL Aspartate Amino Transf (AST/SGOT) 63 H 5-34 U/L Alanine Aminotransferase (ALT/SGPT) 27 0-55 U/L Alkaline Phosphatase 136 40-136 U/L Ammonia 22 11-32 UMOL/L Total Protein 5.2 L 6.4-8.2 GM/DL Albumin 2.4 L 3.2-4.5 GM/DL Serum Alcohol 229 H <10 MG/DL My Orders Orders - ANGUS BRITO MD Alcohol (07/21/17 22:17) Ammonia (07/21/17 22:17) Cbc With Automated Diff (07/21/17 22:17) Comprehensive Metabolic Panel (07/21/17 22:17) Lactic Acid Analyzer (07/21/17 22:) Magnesium (07/21/17:17) Protime With Inr (07/21/17:) Partial Thromboplastin Time (07/21/17:17) Saline Lock/Iv-Start (07/21/17 22:17) Fentanyl Injection (Sublimaze Injection (07/21/17 22:17) Saline Lock/Iv-Start (07/21/17 22:17) Red Cells Leukocytes Reduced (07/21/17 22:53) Type And Screen (07/21/17 22:53) Fentanyl Injection (Sublimaze Injection (07/21/17 23:23) Blood Culture (07/21/17 23:23) Ns Iv 500 Ml (Sodium Chloride 0.9%) (07/21/17 23:53) Morphine Injection (Morphine Injection (07/22/17 00:46) Medications Given in ED Current Medications Medications Dose Ordered Sig/Argelia Route Start Time Stop Time Status Last Admin Dose Admin Sodium Chloride 500 ml @ 0 mls/hr Q0M ONCE IV 07/21/17 23:53 07/21/17 23:54 DC 07/22/17 00:03 10 MLS/HR Vital Signs/I&O Vital Sign - Last 12Hours 07/21/17 07/22/17 07/22/17 21:56 00:09 00:26 Temp 97.0 97.2 97.2 Pulse 102 101 99 Resp 18 17 B/P (MAP) 91/58 76/50 85/55 Pulse Ox 100 99 100 O2 Delivery Room Air Room Air Room Air Progress Note : Progress Note Seen and evaluated. IV 2, labs, type and cross 2 units ordered. Fentanyl 50 g IV. Monitor patient. I did discuss the case with Dr. Garay at 2321. We did discuss options for admission. He will require paracentesis. Patient is at end-stage liver disease and continues to drink alcohol. Dr. Garay and I both agree that probably of care is in the patient's best interest although patient will need to come to the same conclusion patient does have hemoglobin of 6.6 and will require transfusion we will give one unit of blood now and admit the patient. Patient is complaining of severe pain in the abdomen. We will continue pain medication with morphine on the floor. Monitor patient. I did have a long discussion with the patient regarding his prognosis. We will initiate palliative care consult and treatment will likely be related to palpation only as he has end-stage liver disease that is not amenable to therapy. Patient agrees. He has requested DO NOT RESUSCITATE status. 0100: Blood administration 1 unit given. Patient did have periods of hypotension. I again rediscussed the diagnosis with the patient. We will gear care towards palliation. Patient understands and agrees. Admit, observation status. Surgical consult in a.m. for paracentesis with request for Pleurx drain placement. Departure Communication (Admissions) Time/Spoke to Admitting Phy: 23:21 Impression Impression: Primary Impression: End stage liver disease Additional Impressions: abdominal ascites Anemia Qualified Codes: D64.9 - Anemia, unspecified Disposition: ADMITTED INPATIENT Condition: Stable Admissions Decision to Admit Reason: Admit from ER (General) Decision to Admit/Date: Jul 21, 2017 Time/Decision to Admit Time: 23:21 Departure-Patient Inst. Referrals: NO,LOCAL PHYSICIAN (PCP/Family) Primary Care Physician ANGUS BRITO MD Jul 21, 2017 22:22
[2017-07-21 22:26] LABS: BASOPHILS # (AUTO) 0.1 10^3/uL (0.0-0.1); BASOPHILS % (AUTO) 1 % (0-10); EOSINOPHILS % (AUTO) 0 % (0-10); LYMPHOCYTES # (AUTO) 1.8 X 10^3 (1.0-4.0); LYMPHOCYTES % (AUTO) 15 % (12-44); MEAN CORPUSCULAR HEMOGLOBIN 26 PG (25-34); MEAN CORPUSCULAR HGB CONC 32 G/DL (32-36); MEAN CORPUSCULAR VOLUME 82 FL (80-99); MEAN PLATELET VOLUME 11.3 FL (7.4-10.4); MONOCYTES # (AUTO) 0.8 X 10^3 (0.0-1.0); MONOCYTES % (AUTO) 7 % (0-12); NEUTROPHILS # (AUTO) 9.3 X 10^3 (1.8-7.8); NEUTROPHILS % (AUTO) 78 % (42-75); PLATELET COUNT 372 10^3/uL (130-400); RED BLOOD COUNT 2.52 10^6/uL (4.35-5.85); RED CELL DISTRIBUTION WIDTH 18.9 % (10.0-14.5)
[2017-07-21 22:37] LABS: INR 1.6 (0.8-1.4); PROTHROMBIN TIME PATIENT 18.6 SEC (12.2-14.7)
[2017-07-21 23:19] LABS: ALBUMIN 2.4 GM/DL (3.2-4.5); CALCIUM 7.7 MG/DL (8.5-10.1); CREATININE SERUM 1.27 MG/DL (0.60-1.30); MAGNESIUM 1.7 MG/DL (1.8-2.4); POTASSIUM 4.5 MMOL/L (3.6-5.0); TOTAL PROTEIN 5.2 GM/DL (6.4-8.2)
[2017-07-21] MEDS ORDERED: NS IV 500 ML 500 ML IV ONE (23:53)
[2017-07-22] VITALS (8 sets, daily range): BP systolic 72–129; BP diastolic 39–71
[2017-07-22] MEDS ORDERED: morphine INJ 10 MG/ML 1ML (SYR OR VIAL) IVP STA (00:46)
[2017-07-22] MEDS ORDERED: morphine INJ 4 MG/ML 1 ML (VIAL/SYRINGE) ONE (02:40)
[2017-07-22] MEDS: ONDANSETRON 4 MG/2 ML (SDV) Z0FRAN IVP PRN ×2 (03:06→11:03)
[2017-07-22] MEDS ORDERED: fentaNYL INJECTION 100 MCG/2 ML AMP IVP PRN ×2 (03:45→10:00)
[2017-07-22] MEDS ORDERED: RT-ALBUTEROL/IPRATROPIUM 3 ML (DUONEB) VIAL INH PRN ×2 (04:30→15:30)
[2017-07-22] MEDS: morphine INJ 4 MG/ML 1 ML (VIAL/SYRINGE) IV PRN ×2 (05:24→08:04)
[2017-07-22 05:41] LABS: BASOPHILS # (AUTO) 0.1 10^3/uL (0.0-0.1); BASOPHILS % (AUTO) 1 % (0-10); EOSINOPHILS % (AUTO) 0 % (0-10); LYMPHOCYTES % (AUTO) 15 % (12-44); MEAN CORPUSCULAR HEMOGLOBIN 27 PG (25-34); MEAN CORPUSCULAR HGB CONC 32 G/DL (32-36); MEAN CORPUSCULAR VOLUME 82 FL (80-99); MONOCYTES # (AUTO) 1.3 X 10^3 (0.0-1.0); MONOCYTES % (AUTO) 10 % (0-12); NEUTROPHILS # (AUTO) 10.4 X 10^3 (1.8-7.8); NEUTROPHILS % (AUTO) 75 % (42-75); PLATELET COUNT 321 10^3/uL (130-400); RED BLOOD COUNT 2.37 10^6/uL (4.35-5.85); RED CELL DISTRIBUTION WIDTH 17.6 % (10.0-14.5); WHITE BLOOD COUNT 13.8 10^3/uL (4.3-11.0)
[2017-07-22 06:01] LABS: ALBUMIN 2.3 GM/DL (3.2-4.5); BILIRUBIN,TOTAL 3.2 MG/DL (0.1-1.0); CALCIUM 7.5 MG/DL (8.5-10.1); CREATININE SERUM 1.46 MG/DL (0.60-1.30); POTASSIUM 4.2 MMOL/L (3.6-5.0); TOTAL PROTEIN 4.9 GM/DL (6.4-8.2)
[2017-07-22] MEDS ORDERED: RT-ALBUTEROL/IPRATROPIUM 3 ML (DUONEB) VIAL INH SCH (08:00)
[2017-07-22] MEDS ORDERED: fentaNYL INJECTION 100 MCG/2 ML AMP IVP NR (10:00)
[2017-07-22] MEDS ORDERED: FOLI1TAB24 PO (10:06)
[2017-07-22] MEDS ORDERED: SPIR25TA3 PO (10:06)
[2017-07-22] MEDS ORDERED: PROP10TA8 PO (10:06)
[2017-07-22] MEDS ORDERED: POTA-51 PO (10:06)
[2017-07-22] MEDS ORDERED: FURO40TA4 PO (10:06)
--- NOTE | 2017-07-22 12:44 | Consultation ---
History of Present Illness History of Present Illness Patient Consulted On(monica/time) 07/22/17 12:39 Date Seen by Provider: Jul 22, 2017 Time Seen by Provider: 12:39 History of Present Illness Consult requested by Dr. Madsen for paracentesis. Patient is a 56-year-old male with end-stage liver disease. Patient was having increasing abdominal girth abdominal distention and back pain. Patient was brought by EMS. Patient has required previous paracentesis. patient has been having hematemesis as well. Dr. Madsen has talked to the patient and she states that she she's making him comfort care. Patient is in agreement with this plan. He states that his abdomen is miserably uncomfortable due to the abdominal distention. He states when paracentesis is performed he does feel better. He states that he realizes that his medical issues make it worse. He does have the hematemesis. He denies any shortness of breath chest pain, fever sweats chills. Allergies and Home Medications Allergies Coded Allergies: Penicillins (Verified Allergy, Unknown, 02/12/17) Home Medications Folic Acid 1 Mg Tablet, 1 MG PO HS, (Reported) Furosemide 40 Mg Tablet, 40 MG PO DAILY, (Reported) Pantoprazole Sodium 40 Mg Tablet.dr, 40 MG PO DAILY PRN for ACID REFLUX, ( Reported) Potassium Chloride 20 Meq Tablet.er, 20 MEQ PO DAILY, (Reported) Propranolol HCl 10 Mg Tablet, 10 MG PO BID, (Reported) Spironolactone 25 Mg Tablet, 25 MG PO DAILY, (Reported) Past Btfotbd-Nrjzql-Gluchh Hx Patient Social History Alcohol Use: Regular Use Number of Drinks Today: FF Recreational Drug Use: No Smoking Status: Current Everyday Smoker Type Used: Cigars 2nd Hand Smoke Exposure: Yes Recent Foreign Travel: No Contact w/Someone Who Travel: No Recent Infectious Disease Expo: No Recent Hopitalizations: No Physical Abuse Screen: No Sexual Abuse: No Seasonal Allergies Seasonal Allergies: No Surgeries History of Surgeries: Yes (esophageal banding) Surgeries: Abdominal Respiratory History of Respiratory Disorde: No Cardiovascular History of Cardiac Disorders: No Neurological History of Neurological Disord: No Reproductive System Hx Reproductive Disorders: No Genitourinary History of Genitourinary Disor: No Gastrointestinal History of Gastrointestinal Di: Yes Gastrointestinal Disorders: Liver Disease/Jaundice, Gastrointestinal Bleed, Esophageal Varices, Cirrhosis Musculoskeletal History of Musculoskeletal Dis: Yes Musculoskeletal Disorders: Chronic Back Pain Endocrine History of Endocrine Disorders: No HEENT History of HEENT Disorders: No Cancer History of Cancer: No Psychosocial History of Psychiatric Problem: Yes (alcoholism) Behavioral Health Disorders: Anxiety, PTSD, Depression Integumentary History of Skin or Integumenta: No Blood Transfusions History of Blood Disorders: Yes Adverse Reaction to a Blood Tr: No Reviewed Nursing Assessment Reviewed/Agree w Nursing PMH: Yes Family Medical History Significant Family History: No Pertinent Family Hx Family Medial History: Patient reports no known family medical history. Review of Systems-General Constitutional: see HPI EENTM: no symptoms reported Respiratory: no symptoms reported Cardiovascular: no symptoms reported Gastrointestinal: see HPI Genitourinary: no symptoms reported Musculoskeletal: back pain Skin: no symptoms reported Psychiatric/Neurological: No Symptoms Reported Physical Exam-General Problems Physical Exam Vital Signs Vital Sign - Last 12Hours 07/21/17 21:56 Temp 97.0 Pulse 102 Resp 17 B/P (MAP) 91/58 Pulse Ox 100 O2 Delivery Room Air Capillary Refill : Less Than 3 Seconds General Appearance: other (laying in bed appears to be uncomfortable) HEENT: normal ENT inspection, scleral icterus (L) Neck: non-tender Respiratory: no respiratory distress, no accessory muscle use Cardiovascular: regular rate, rhythm Gastrointestinal: distended, tenderness (Diffuse), other (Fluid shift) Rectal: deferred Back: no CVA tenderness Extremities: non-tender Neurologic/Psychiatric: alert, normal mood/affect, oriented x 3 Skin: jaundice Data Review Labs Laboratory Tests 07/21/17 22:03: White Blood Count 12.0H, Red Blood Count 2.52L, Hemoglobin 6.6*L, Hematocrit 21L , Mean Corpuscular Volume 82, Mean Corpuscular Hemoglobin 26, Mean Corpuscular Hemoglobin Concent 32, Red Cell Distribution Width 18.9H, Platelet Count 372, Mean Platelet Volume 11.3H, Neutrophils (%) (Auto) 78H, Lymphocytes (%) (Auto) 15, Monocytes (%) (Auto) 7, Eosinophils (%) (Auto) 0, Basophils (%) (Auto) 1, Neutrophils # (Auto) 9.3H, Lymphocytes # (Auto) 1.8, Monocytes # (Auto) 0.8, Eosinophils # (Auto) 0.0, Basophils # (Auto) 0.1, Prothrombin Time 18.6H, INR Comment 1.6H, Activated Partial Thromboplast Time 36H 07/21/17 22:49: Sodium Level 133L, Potassium Level 4.5, Chloride Level 103, Carbon Dioxide Level 20L, Anion Gap 10, Blood Urea Nitrogen 27H, Creatinine 1.27, Estimat Glomerular Filtration Rate 59, BUN/Creatinine Ratio 21, Glucose Level 172H, Lactic Acid Level 3.85*H, Calcium Level 7.7L, Magnesium Level 1.7L, Total Bilirubin 2.0H, Aspartate Amino Transf (AST/SGOT) 63H, Alanine Aminotransferase (ALT/SGPT) 27, Alkaline Phosphatase 136, Ammonia 22, Total Protein 5.2L, Albumin 2.4L, Serum Alcohol 229H 07/22/17 00:54: Lactic Acid Level 4.28*H 07/22/17 05:31: White Blood Count 13.8H, Red Blood Count 2.37L, Hemoglobin 6.3*L, Hematocrit 20* L, Mean Corpuscular Volume 82, Mean Corpuscular Hemoglobin 27, Mean Corpuscular Hemoglobin Concent 32, Red Cell Distribution Width 17.6H, Platelet Count 321, Mean Platelet Volume 11.0H, Neutrophils (%) (Auto) 75, Lymphocytes (%) (Auto) 15 , Monocytes (%) (Auto) 10, Eosinophils (%) (Auto) 0, Basophils (%) (Auto) 1, Neutrophils # (Auto) 10.4H, Lymphocytes # (Auto) 2.0, Monocytes # (Auto) 1.3H, Eosinophils # (Auto) 0.0, Basophils # (Auto) 0.1, Sodium Level 134L, Potassium Level 4.2, Chloride Level 104, Carbon Dioxide Level 17L, Anion Gap 13, Blood Urea Nitrogen 32H, Creatinine 1.46H, Estimat Glomerular Filtration Rate 50, BUN/ Creatinine Ratio 22, Glucose Level 153H, Calcium Level 7.5L, Total Bilirubin 3.2H, Aspartate Amino Transf (AST/SGOT) 76H, Alanine Aminotransferase (ALT/SGPT ) 31, Alkaline Phosphatase 121, Total Protein 4.9L, Albumin 2.3L Assessment/Plan Assessment/Plan Assessment/Plan Patient is a 56-year-old male with end-stage liver disease abdominal ascites, anemia hematemesis. patient is planning for comfort care due to severity of his multiple comorbidities Patient was discuss risk and benefits of having paracentesis performed for comfort. He understands the risks and benefits and wishes to proceed. Paracentesis was performed removing 8 L of straw-colored fluid. See procedure note We'll sign off at this time. Please call if needed. Clinical Quality Measures DVT/VTE Risk/Contraindication: Risk Factor Score Per Nursin RFS Level Per Nursing on Admit: 4+=Very High Smoking Cessation Counseling: Counseling-Symptomatic: 3-10 Minutes DEVIN AVERY DO Jul 22, 2017 12:44
--- NOTE | 2017-07-22 13:23 | History & Physicial (CHS) ---
HPI History of Present Illness: 56yo gentleman well known to me presented to ER last night with bloody emesis and complaints of increasing abdominal girth. Jose G was requesting paracentesis. Also appeared to have an infectious process and so was admitted to hospital Overnight, patient had 300cc of bloody emesis. This resolved for a few hours but recurred approximately 6-8h later. Patient is a long time alcoholic and as of hte last admission had no intent to quit. He has been followed at [facility], albeit sporadically, for his esophageal varices and multiple taps. Per the patinet, they have recommended palliative care but it has not been arranged as yet. Source: patient Exam Limitations: no limitations Date seen by provider: Jul 22, 2017 Time Seen by Provider: 10:00 Attending Physician Zeynep Garay MD PCP No,Local Physician Consult Rudy Boyd DO Date of Admission Jul 21, 2017 at 11:55 pm Home Medications Home Medications Reviewed patient Home Medication Reconciliation Form Allergies Coded Allergies: Penicillins (Verified Allergy, Unknown, 02/12/17) OPF-Uqwvcv-Dbdawj Hx Patient Social History Alcohol Use: Regular Use Recreational Drug Use: No Smoking Status: Current Everyday Smoker Type Used: Cigars 2nd Hand Smoke Exposure: Yes Recent Foreign Travel: No Contact w/other who traveled: No Recent Hopitalizations: No Recent Infectious Disease Expo: No Physical Abuse Screen: No Sexual Abuse: No Family Medical History Significant Family History: No Pertinent Family Hx Family History: Patient reports no known family medical history. Review of Systems (CHC) Constitutional: no symptoms reported All Other Systems Reviewed Negative Unless Noted: Yes Reviewed Test Results Reviewed Test Results Lab Laboratory Tests Test 07/21/17 22:03 07/21/17 22:49 07/22/17 00:54 07/22/17 05:31 Range/Units White Blood Count 12.0 H 13.8 H 4.3-11.0 10^3/uL Red Blood Count 2.52 L 2.37 L 4.35-5.85 10^6/uL Hemoglobin 6.6 *L 6.3 *L 13.3-17.7 G/DL Hematocrit 21 L 20 *L 40-54 % Mean Corpuscular Volume 82 82 80-99 FL Mean Corpuscular Hemoglobin 26 27 25-34 PG Mean Corpuscular Hemoglobin Concent 32 32 32-36 G/DL Red Cell Distribution Width 18.9 H 17.6 H 10.0-14.5 % Platelet Count 372 321 130-400 10^3/uL Mean Platelet Volume 11.3 H 11.0 H 7.4-10.4 FL Neutrophils (%) (Auto) 78 H 75 42-75 % Lymphocytes (%) (Auto) 15 15 12-44 % Monocytes (%) (Auto) 7 10 0-12 % Eosinophils (%) (Auto) 0 0 0-10 % Basophils (%) (Auto) 1 1 0-10 % Neutrophils # (Auto) 9.3 H 10.4 H 1.8-7.8 X 10^3 Lymphocytes # (Auto) 1.8 2.0 1.0-4.0 X 10^3 Monocytes # (Auto) 0.8 1.3 H 0.0-1.0 X 10^3 Eosinophils # (Auto) 0.0 0.0 0.0-0.3 10^3/uL Basophils # (Auto) 0.1 0.1 0.0-0.1 10^3/uL Prothrombin Time 18.6 H 12.2-14.7 SEC INR Comment 1.6 H 0.8-1.4 Activated Partial Thromboplast Time 36 H 24-35 SEC Sodium Level 133 L 134 L 135-145 MMOL/L Potassium Level 4.5 4.2 3.6-5.0 MMOL/L Chloride Level 103 104 98-107 MMOL/L Carbon Dioxide Level 20 L 17 L 21-32 MMOL/L Anion Gap 10 13 5-14 MMOL/L Blood Urea Nitrogen 27 H 32 H 7-18 MG/DL Creatinine 1.27 1.46 H 0.60-1.30 MG/DL Estimat Glomerular Filtration Rate 59 50 BUN/Creatinine Ratio 21 22 Glucose Level 172 H 153 H 70-105 MG/DL Lactic Acid Level 3.85 *H 4.28 *H 0.50-2.00 MMOL/L Calcium Level 7.7 L 7.5 L 8.5-10.1 MG/DL Magnesium Level 1.7 L 1.8-2.4 MG/DL Total Bilirubin 2.0 H 3.2 H 0.1-1.0 MG/DL Aspartate Amino Transf (AST/SGOT) 63 H 76 H 5-34 U/L Alanine Aminotransferase (ALT/SGPT) 27 31 0-55 U/L Alkaline Phosphatase 136 121 40-136 U/L Ammonia 22 11-32 UMOL/L Total Protein 5.2 L 4.9 L 6.4-8.2 GM/DL Albumin 2.4 L 2.3 L 3.2-4.5 GM/DL Serum Alcohol 229 H <10 MG/DL Physical Exam-(CHC) Physical Exam Vital Signs VS - Last 72 Hours, by Label 07/21/17 07/22/17 07/22/17 07/22/17 21:56 00:09 00:26 01:30 Temp 97.0 97.2 97.2 97.2 Pulse 102 101 99 98 Resp 18 B/P (MAP) 91/58 76/50 85/55 97/71 Pulse Ox 100 99 100 99 O2 Delivery Room Air Room Air Room Air Room Air 07/22/17 07/22/17 07/22/17 07/22/17 01:52 02:26 02:30 02:39 Temp 97.2 96.6 Pulse 98 108 108 Resp 18 16 B/P (MAP) 129/64 Pulse Ox 99 100 99 O2 Delivery Room Air Room Air Room Air 07/22/17 07/22/17 03:00 08:00 Temp 98.6 97.6 Pulse 112 80 Resp 20 B/P (MAP) 94/63 108/59 Pulse Ox 92 96 O2 Delivery Room Air Room Air Capillary Refill : Less Than 3 Seconds General Appearance: moderate distress (dried blood around lips, ), cachetic HEENT: PERRL/EOMI, normal ENT inspection Neck: non-tender, full range of motion, supple, normal inspection Respiratory: lungs clear, normal breath sounds, no respiratory distress, no accessory muscle use Cardiovascular: regular rate, rhythm, no edema, no gallop, no JVD, no murmur, tachycardia Gastrointestinal: distended (tense ascites iwth fluid wave) Extremities: normal range of motion, non-tender, normal inspection, no pedal edema, no calf tenderness, normal capillary refill Neurologic/Psychiatric: general education instructor II-XII nml as tested, no motor/sensory deficits, alert, normal mood/affect, oriented x 3 Skin: normal color, warm/dry Assessment/Plan Assessment/Plan Plan END STAGE LIVER DISEASE CHRONIC ALCOHOLISM RUPTURED ESOPHAGEAL VARICES WITH UPPER GI BLEED PANCYTOPENIA POSSIBLE SBP ACUTE ON CHRONIC ANEMIA SECONDARY TO ACUTE BLOOD LOSS AND GIB I spoke at length with Eleuterio about his options. I recommend palliative care, and he is agreeable to this. He is concerned about going home as he is not sure his girlfriend can take care of him, but there are plans in the works for him to move in with her. Initially, I anticipated that we would be able to discharge him home on hospice, but he quickly deteriorated after I saw him and had more bloody vomiting. FOr this reason, we will consult our palliative care nurse and plan to keep the patient until the situation calms a bit. We can reconsider our path as things develop over the next 24h. We will make him comfort care while in hospital. Diagnosis/Problems: Clinical Quality Measures DVT/VTE Risk/Contraindication: Risk Factor Score Per Nursin RFS Level Per Nursing on Admit: 4+=Very High Smoking Cessation Counseling: Counseling-Symptomatic: 3-10 Minutes Copy Copies To 1: ZEYNEP GARAY MD, JULIE A MD Jul 22, 2017 1:23 pm
[2017-07-22] MEDS ORDERED: GLYCOPYRROLATE 0.2 MG/ML (ROBINUL) 2 ML VIAL IV PRN (13:30)
[2017-07-22] MEDS ORDERED: ARTIFICIAL TEARS OINT (LACRI-LUBE) 3.5 GM TUBE OU PRN (13:30)
[2017-07-22] MEDS ORDERED: PROMETHAZINE INJ 25 MG/ML (PHENERGAN) AMP IVP PRN (13:30)
[2017-07-22] MEDS ORDERED: LORazepam INJ 2 MG/ML (ATIVAN) VIAL IVP PRN (13:30)
[2017-07-22] MEDS ORDERED: SALIVA STIMULANT MOUTH SPRAY (BIOTENE) 1.5 OZ MM PRN (13:30)
[2017-07-22] MEDS ORDERED: ARTIFICAL TEARS 0.4 ML UNIT DOSE (REFRESH PLUS) OU PRN (13:30)
[2017-07-22] MEDS ORDERED: morphine INJ 4 MG/ML 1 ML (VIAL/SYRINGE) IV PRN (13:30)
[2017-07-22] MEDS ORDERED: morphine (ROXINOL) 10 MG/0.5 ML oral conc 0.5 ML PO PRN (13:30)
[2017-07-22] MEDS ORDERED: morphine IMMEDIATE RELEASE 15 MG TABLET PO PRN (13:30)
[2017-07-22] MEDS ORDERED: ACETAMINOPHEN 650 MG SUPP (TYLENOL) PR PRN (13:30)
[2017-07-22] MEDS ORDERED: ONDANSETRON 4 MG/2 ML (SDV) Z0FRAN IVP PRN (13:30)
--- NOTE | 2017-07-22 15:31 | Diagnostic Imaging Report ---
PROCEDURE: US Abdomen, limited. TECHNIQUE: Multiple realtime grayscale images were obtained over the abdomen in various projections. INDICATION: Localization for paracentesis. Abdominal ultrasound showed large volume of fluid in the abdomen. Area was localized for subsequent paracentesis. IMPRESSION: Localization right lower quadrant for subsequent paracentesis. Dictated by: Dictated on workstation # [id number]
[2017-07-22] MEDS ORDERED: PANTOPRAZOLE 40 MG/10 ML (PROTONIX) VIAL IV SCH (21:00)
--- NOTE | 2017-07-23 23:40 | OPERATIVE REPORT ---
DATE OF SERVICE: 07/22/2017 PREOPERATIVE DIAGNOSIS: Abdominal ascites. POSTOPERATIVE DIAGNOSIS: Abdominal ascites along with end-stage liver disease. PROCEDURE: Paracentesis, ultrasound-guided. SURGEON: Devin Boyd DO ANESTHESIA: Local, 1% lidocaine 3 mL. ESTIMATED BLOOD LOSS: Minimal. COMPLICATIONS: None. INDICATIONS: The patient is a 56-year-old male with end-stage liver disease with significant abdominal distention with ascites. He understands the risks and benefits of paracentesis, ultrasound-guided and wishes to proceed. Consent was signed and on the chart. DESCRIPTION OF PROCEDURE: The patient was prepped and draped in a sterile fashion after ultrasound guidance was used to locate the largest pocket, which was in the right lower quadrant. Once this was marked, the area was prepped and draped in a sterile fashion. Local anesthetic of 1% lidocaine, 3 mL was injected into the area. Once anesthetic effect took place, a #11 blade scalpel was used to make a small skin incision. A safety paracentesis kit was inserted through the small stab incision until straw-colored fluid returned and the catheter was inserted into the abdomen and the ascites was then drained. The patient was slowly drained and a total of 8 liters of fluid was removed from the abdomen. Once this was withdrawn, the catheter was removed and a sterile bandage was applied. The patient tolerated the procedure well without any complications. The patient understands this was performed for comfort measures and is being placed in comfort care at this time. Job ID: [id number] DocumentID: [id number] Dictated Date: 07/22/2017 12:52:46 [employer] Date: 07/23/2017 03:26:02 Dictated By: DEVIN BOYD DO
--- NOTE | 2017-07-24 20:47 | Discharge Summary ---
Diagnosis/Chief Complaint Date of Admission Jul 22, 2017 at 2:23 pm Date of Discharge Jul 23, 2017 at 3:30 am Admission Diagnosis Admission Diagnosis END STAGE LIVER DISEASE CHRONIC ALCOHOLISM RUPTURED ESOPHAGEAL VARICES WITH UPPER GI BLEED PANCYTOPENIA POSSIBLE SBP ACUTE ON CHRONIC ANEMIA SECONDARY TO ACUTE BLOOD LOSS AND GIB Discharge Diagnosis END STAGE LIVER DISEASE CHRONIC ALCOHOLISM RUPTURED ESOPHAGEAL VARICES WITH UPPER GI BLEED PANCYTOPENIA POSSIBLE SBP ACUTE ON CHRONIC ANEMIA SECONDARY TO ACUTE BLOOD LOSS AND GIB From Dr. Garay's H&P "I spoke at length with Eleuterio about his options. I recommend palliative care, and he is agreeable to this. He is concerned about going home as he is not sure his girlfriend can take care of him, but there are plans in the works for him to move in with her. Initially, I anticipated that we would be able to discharge him home on hospice, but he quickly deteriorated after I saw him and had more bloody vomiting. FOr this reason, we will consult our palliative care nurse and plan to keep the patient until the situation calms a bit. We can reconsider our path as things develop over the next 24h. We will make him comfort care while in hospital." Patient overnight 07/23 on comfort care measures. Chief Complaint/HPI Chief Complaint/HPI 56yo gentleman well known to me presented to ER last night with bloody emesis and complaints of increasing abdominal girth. Jose G was requesting paracentesis. Also appeared to have an infectious process and so was admitted to hospital Overnight, patient had 300cc of bloody emesis. This resolved for a few hours but recurred approximately 6-8h later. Patient is a long time alcoholic and as of hte last admission had no intent to quit. He has been [facility] at [facility], albeit sporadically, for his esophageal varices and multiple taps. Per the patinet, they have recommended palliative care but it has not been arranged as yet. Discharge Summary-Simple/Stand Consultations Rudy Boyd DO Discharge Physical Examination Allergies: Coded Allergies: Penicillins (Verified Allergy, Unknown, 02/12/17) Vitals & I&Os Vital Sign - Last 12Hours Date Time Temp Pulse Resp B/P (MAP) Pulse Ox O2 Delivery O2 Flow Rate FiO2 07/22/17 20:35 Room Air 07/22/17 12:00 72/39 07/22/17 12:00 97.2 101 24 97 Hospital Course See final discharge diagnosis. Discharge Instructions to patient/family Please see electronic discharge instructions given to patient. Discharge Medications Reviewed and agree with Discharge Medication list on patient's Discharge Instruction sheet Clinical Quality Measures DVT/VTE Risk/Contraindication: Risk Factor Score Per Nursin RFS Level Per Nursing on Admit: 4+=Very High Smoking Cessation Counseling: Counseling-Symptomatic: 3-10 Minutes Comfort Measures/ Type of Care: Comfort Measures Date of : Jul 23, 2017 Copy Copies To 1: ZEYNEP GARAY MD, BETHANY N MD Jul 24, 2017 8:47 pm
--- NOTE | 2017-07-26 07:55 | Physician Query Clarification ---
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 Chronic Alcoholism Clinical Findings: Increasing abdominal girth Lactic acid 3.85, T97.0, Pulse 102, Resp 17, BP 91/58, Positive blood culture for Staph, Coag Neg from both bottles of culture collected in ED. Per H&P- "Patient was requesting paracentesis. Also appeared to have an infectious process and so was admitted to hospital." Possible SBP. Treatment: IV Fentanyl Citrate, IV Morphine Sulfate, IV Zofran, Paracentesis for comfort. Question: Can you further specify Infectious condition and possible SBP per the clinical indicators above? Please document below. 1. Sepsis due to Coag Neg Staph with Spontaneous Bacterial Peritonitis. 2. Spontaneous Bacterial Peritonitis. 3. Other, with explanation of the clinical findings. 4. Clinically undetermined, no explanation for the clinical findings. PHYSICIAN RESPONSE Can you specify per above: Other, explanation/clinical finding (Should be addressed to Dr. Madsen as I was not on at his admission) In responding to this query, please exercise your independent professional judgment. The purpose of this communication is to more accurately reflect the complexity of your patients condition. The fact that a question is asked does not imply that any particular answer is desired or expected. Thank you for your timely response to this clarification. Requestors name: Maribel Lynn [facility] Phone # ext [phone] or [phone] THIS PHYSICIAN QUERY FORM IS A PERMANENT PART OF THE MEDICAL RECORD MARIBEL LYNN Jul 26, 2017 07:55 LEATHA LEBLANC MD Aug 03, 2017 09:17
--- NOTE | 2017-08-04 10:30 | Physician Query Clarification ---
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 Chronic alcoholism Clinical Findings: Increased abdominal girth. Lactic acid 3.85, T97.0, Pulse 102, Resp 17, BP 91/58, Positive blood culture for Staph Coag Neg from both bottles of culture collected in ED. Per H&P, "Patient was requesting paracentesis. Also appeared to have an infectious process and so was admitted to hospital." Possible SBP. Treatment: IV Fentanyl Citrate, IV morphine Sulfate, IV Zofran, Paracentesis for comfort. Question: Can you further specify Infectious condition and possible SBP per the clinical indicators above? Please document below. 1. Sepsis due to Coag Neg Staph with Sontaneous Bacterial Peritonitis. 2. Spontaneous Bacterial Peritonitis. 3. Other, with explanation of the clinical findings. 4. Clinically undetermined, no explanation for the clinical findings. PHYSICIAN RESPONSE Can you specify per above: 1 Explanation/Clinical Findings DIFFICULT TO DETERMINE BUT LIKELY #1 IN LIGHT OF CLINICAL SCENARIO. APPROPRIATE STUDIES TO DETERMINE IF IT WAS SBP WERE NOT DONE AT PATIENT'S REQUEST TO MOVE TO COMFORT CARE. In responding to this query, please exercise your independent professional judgment. The purpose of this communication is to more accurately reflect the complexity of your patients condition. The fact that a question is asked does not imply that any particular answer is desired or expected. Thank you for your timely response to this clarification. Requestors name: Maribel Lynn [facility] Phone # ext [phone] or [phone] THIS PHYSICIAN QUERY FORM IS A PERMANENT PART OF THE MEDICAL RECORD MARIBEL LYNN Aug 04, 2017 10:30 ZEYNEP GARAY MD Aug 08, 2017 11:31
== END 2017-07-23 03:30 | disposition expired | DRG 871 ==
LOC: EDUNIT# 21:56 → ER 21:57 → 4TH 23:55 → OBSVTOIN 07-22 14:23 → UNDODISIN 07-23 03:30
PROVIDERS: ADMIT Pediatrics; ATTEND Pediatrics
PROC: 0W9G3ZZ Drainage of Peritoneal Cavity, Percutaneous Approach (ICD-10-PCS; principal; 2017-07-22)
DX: A41.1 Sepsis due to other specified staphylococcus (principal); K65.2 Spontaneous bacterial peritonitis; K70.31 Alcoholic cirrhosis of liver with ascites; I85.11 Secondary esophageal varices with bleeding; K92.0 Hematemesis; D62 Acute posthemorrhagic anemia; D61.818 Other pancytopenia; Z66 Do not resuscitate; Z51.5 Encounter for palliative care; R64 Cachexia; F10.20 Alcohol dependence, uncomplicated; M54.9 Dorsalgia, unspecified; F43.10 Post-traumatic stress disorder, unspecified; F41.9 Anxiety disorder, unspecified; F32.9 Major depressive disorder, single episode, unspecified; F17.290 Nicotine dependence, other tobacco product, uncomplicated
CPT/HCPCS: 36415; 76705; 80053; 80320; 82140; 83605; 83735; 85025; 85610; 85730; 86850; 86900; 86901; 86920; 87040; 96361; 96374; 96375; 96376; G0378